=== PATIENT | male | born 1945 | race Caucasian/White ===

== ENCOUNTER 2018-12-05 18:39 | Emergency (ER) | payer MEDICARE, OTHER ==
[~2018-12-05] VITALS: Ht 167.6 cm; Wt 81.6 kg
[2018-12-05 18:40] VITALS: BP 116/58
--- NOTE | 2018-12-05 18:47 | NUR ---
PT TO BED 9 VIA [facility]
--- NOTE | 2018-12-05 19:10 | NUR ---
REPORT RECEIVED FROM VENUS GUERRERO
--- NOTE | 2018-12-05 19:12 | NUR ---
DR. GREENE AT BEDSIDE FOR EVALUATION.
--- NOTE | 2018-12-05 19:13 | NUR ---
PATIENT PRESENTS TO ED WITH bystander called 911 witnessed pt fall ---pt stated 2 dogs scared him and he fell foward onto knees superficial abrasion to left knee no discoloration no swelling---joy tib/fib bandaged; pt states under care of doctor . DENIES N/V/D; SKIN IS PINK/WARM/DRY; AAOX4 WITH EVEN AND STEADY GAIT; LUNGS CLEAR BL; HR EVEN AND REGULAR; PT DENIES ANY FEVER, CP, SOB, OR COUGH AT THIS TIME; PATIENT STATES PAIN OF 6/10 AT THIS TIME; VSS; PATIENT POSITIONED FOR COMFORT; HOB ELEVATED; BEDRAILS UP X2; BED DOWN. ER MD MADE AWARE OF PT STATUS.
[2018-12-05] MEDS ORDERED: ACETAMINOPHEN EXTRA STRENGTH 500 MG TAB PO ONE (19:20)
[2018-12-05 21:28] LABS: BASOPHILS # (AUTO) 0.1 K/uL (0.00-0.22); BASOPHILS % (AUTO) 0.5 % (0.0-2.0); EOSINOPHILS # (AUTO) 0.2 K/uL (0-0.4); EOSINOPHILS % (AUTO) 1.6 % (0.0-4.0); HEMATOCRIT 37.9 % (36-52); HEMOGLOBIN 12.2 g/dL (12.0-18.0); LYMPHOCYTES # (AUTO) 1.1 K/uL (2.0-11.5); MEAN CORPUSCULAR HEMOGLOBIN 27 pg (27-31); MEAN CORPUSCULAR HGB CONC 32 g/dL (33-37); MEAN CORPUSCULAR VOLUME 84.5 fL (80-94); MONOCYTES # (AUTO) 0.6 K/uL (0.8-1.0); MONOCYTES % (AUTO) 6.4 % (1.7-9.3); NEUTROPHILS # (AUTO) 8.1 K/uL (1.8-7.7); NEUTROPHILS % (AUTO) 80.5 % (42.2-75.2); PLATELET COUNT (AUTO) 174 K/uL (140-450); RED BLOOD CELL COUNT(AUTO) 4.49 MIL/uL (4.20-6.10); RED CELL DISTRIBUTION WIDTH 14.7 % (11.6-13.7); WHITE BLOOD COUNT (AUTO) 10.1 K/uL (4.8-10.8)
[2018-12-05 21:38] LABS: APPEARANCE,URINE CLEAR (CLEAR); BILIRUBIN,URINE 1+ (NEGATIVE); BLOOD, URINE NEGATIVE (NEGATIVE); LEUKOCYTE ESTERASE ,URINE NEGATIVE (NEGATIVE); NITRITE, URINE NEGATIVE (NEGATIVE); PH,URINE 5.5 (5.0-9.0); UGLUCOSE NEGATIVE (NEGATIVE)
[2018-12-05 21:41] LABS: ANION GAP 7.8 (8-16); CARBON DIOXIDE 31.8 mmol/L (21-32); CHLORIDE 106 mmol/L (98-107); CREATININE 1.6 mg/dL (0.7-1.3); GLUCOSE 107 mg/dL (74-106); POTASSIUM 4.6 mmol/L (3.5-5.1); SODIUM SERUM 141 mmol/L (136-145); UREA NITROGEN, BLOOD 29 mg/dL (7-18)
[2018-12-05 21:46] LABS: COLOR,URINE AMBER (YELLOW)
[2018-12-05 21:47] LABS: ALBUMIN 2.9 g/dL (3.4-5.0); ASPARTATE AMINOTRANSFERASE 18 U/L (15-37); LIPASE 398 U/L (73-393); TOTAL BILIRUBIN 0.3 mg/dL (0.0-1.0)
[2018-12-05] MEDS ORDERED: NACL 0.9% 1,000 ML IV ONE (22:05)
--- NOTE | 2018-12-05 22:20 | NUR ---
CAREGIVER, "APOLLO", AT BEDSIDE.
[2018-12-05 22:23] LABS: CREATINE KINASE MB 2.4 ng/mL (0-3.6)
[2018-12-05 22:25] VITALS: BP 140/70
--- NOTE | 2018-12-05 22:25 | NUR ---
Patient discharged with v/s stable. Written and verbal after care instructions given and explained. Patient verbalized understanding. Wheel Chair Assisted with caregiver. All questions addressed prior to discharge. Advised to follow up with PMD.
== END 2018-12-05 22:25 | disposition home or self-care (01) ==
LOC: MED 18:39
DX: S80.02XA Contusion of left knee, initial encounter (principal); E11.9 Type 2 diabetes mellitus without complications; F03.90 Unspecified dementia, unspecified severity, without behavioral disturbance, psychotic disturbance, mood disturbance, and anxiety; Z95.0 Presence of cardiac pacemaker; W18.39XA Other fall on same level, initial encounter; Y93.01 Activity, walking, marching and hiking; Y92.414 Local residential or business street as the place of occurrence of the external cause; Y99.8 Other external cause status
CPT/HCPCS: 36415; 71045; 73562; 80053; 81003; 82550; 82553; 83690; 84484; 85025; 93005; 99284; Q0092

== ENCOUNTER 2019-01-24 11:22 | Emergency (ER) | payer MEDICARE, OTHER ==
[~2019-01-24] VITALS: Ht 182.9 cm; Wt 69.9 kg
--- NOTE | 2019-01-24 11:22 | NUR ---
PATIENT BIBA. PATIENT TRANSFERRED TO ER BED 12. RN EVALUATING AT BEDSIDE.
[2019-01-24 11:26] VITALS: BP 115/61
--- NOTE | 2019-01-24 11:30 | NUR ---
PT BIBA W/ C/O GENERALIZED WEAKNESS STARTING TODAY. FSBS 155 UPON ARRIVAL, PT HAS HX OF DEMENTIA, HTN, PACEMAKER TO LEFT CHEST. A & 0 X1, M/S FUNCTION INTACT, PT DENIES PAIN. BILAT LOWER EXTREMETIES ARE WRAPPED IN JACQUELINE BANDAGE FROM THE FOOT UP TO THE KNEE, L HAND HAS REDNESS/SWELLING TO THE 2ND DIGIT. SKIN IS WARM/DRY; LUNGS CLEAR BL; HR EVEN AND REGULAR;VSS; PATIENT POSITIONED FOR COMFORT; HOB ELEVATED; BEDRAILS UP X1; BED DOWN. ER MD MADE AWARE OF PT STATUS.
[2019-01-24] MEDS ORDERED: NACL 0.9% 2,000 ML IV SCH (12:22)
[2019-01-24] MEDS ORDERED: PIPERACILLIN/TAZOBACTAM 3.375 GM in DEXT 5% MINI-BAG PLUS 50 ML IV ONE (12:25)
[2019-01-24] MEDS ORDERED: PIPERACILLIN/TAZOBACTAM 3.375 GM VIAL IV ONE (12:48)
--- NOTE | 2019-01-24 13:10 | NUR ---
URINE COLLECTED AND SENT TO LAB
[2019-01-24 13:16] LABS: BASOPHILS % (AUTO) 0.5 % (0.0-2.0); EOSINOPHILS # (AUTO) 0.1 K/uL (0-0.4); EOSINOPHILS % (AUTO) 0.6 % (0.0-4.0); HEMATOCRIT 39.4 % (36-52); HEMOGLOBIN 12.9 g/dL (12.0-18.0); LYMPHOCYTES # (AUTO) 0.6 K/uL (2.0-11.5); LYMPHOCYTES % (AUTO) 7.2 % (20.5-51.1); MEAN CORPUSCULAR HEMOGLOBIN 28 pg (27-31); MEAN CORPUSCULAR HGB CONC 33 g/dL (33-37); MEAN CORPUSCULAR VOLUME 83.7 fL (80-94); MONOCYTES # (AUTO) 0.5 K/uL (0.8-1.0); MONOCYTES % (AUTO) 5.2 % (1.7-9.3); NEUTROPHILS # (AUTO) 7.7 K/uL (1.8-7.7); NEUTROPHILS % (AUTO) 86.5 % (42.2-75.2); PLATELET COUNT (AUTO) 158 K/uL (140-450); RED CELL DISTRIBUTION WIDTH 15.4 % (11.6-13.7); WHITE BLOOD COUNT (AUTO) 8.9 K/uL (4.8-10.8)
[2019-01-24] MEDS ORDERED: DONE5TAB34 PO (13:18)
[2019-01-24] MEDS ORDERED: AMLO5TAB6 PO (13:18)
[2019-01-24] MEDS ORDERED: TAMS0.4C96 PO (13:18)
[2019-01-24 13:28] LABS: ACETONE, SERUM NEGATIVE (NEGATIVE); PROTHROMBIN TIME 10.4 secs (10.8-13.4)
[2019-01-24 13:40] LABS: MAGNESIUM 1.9 mg/dL (1.8-2.4); URIC ACID 8.1 mg/dL (2.6-7.2)
[2019-01-24 13:42] LABS: ALBUMIN 2.9 g/dL (3.4-5.0); ANION GAP 7.7 (8-16); ASPARTATE AMINOTRANSFERASE 17 U/L (15-37); CARBON DIOXIDE 27.5 mmol/L (21-32); CHLORIDE 106 mmol/L (98-107); CREATININE 1.7 mg/dL (0.7-1.3); GLUCOSE 129 mg/dL (74-106); POTASSIUM 4.2 mmol/L (3.5-5.1); SODIUM SERUM 137 mmol/L (136-145); TOTAL BILIRUBIN 0.7 mg/dL (0.0-1.0); UREA NITROGEN, BLOOD 29 mg/dL (7-18)
--- NOTE | 2019-01-24 14:25 | NUR ---
DISCUSSED POSSIBLE ADMISSION WITH PT, HE STATES HE DID NOT ASK HIS CAREGIVER TO CALL AN AMBULANCE FOR HIM AND HE DOES NOT WANT TO BE ADMITTED. PT STATES HE "THINKS HIS CAREGIVER GAVE HIM SOMETHING TO MAKE HIM TIRED". PT IS A&O X4 AT THIS TIME.
--- NOTE | 2019-01-24 14:30 | NUR ---
INFORMED DR. WAYNE THAT PT DOES NOT WANT TO BE ADMITTED. HE WILL GO SEE THE PT.
[2019-01-24 14:32] LABS: APPEARANCE,URINE CLEAR (CLEAR); BILIRUBIN,URINE NEGATIVE (NEGATIVE); BLOOD, URINE 2+ (NEGATIVE); COLOR,URINE YELLOW (YELLOW); LEUKOCYTE ESTERASE ,URINE NEGATIVE (NEGATIVE); NITRITE, URINE NEGATIVE (NEGATIVE); PH,URINE 5.5 (5.0-9.0); UGLUCOSE NEGATIVE (NEGATIVE)
--- NOTE | 2019-01-24 14:35 | NUR ---
PER DR. WAYNE, PT WILL LEAVE AMA.
[2019-01-24 14:41] LABS: RBC,URINE 11-20 (MOD) /HPF (0-5); WBC,URINE 0-5 /HPF (0-5)
[2019-01-24 16:20] VITALS: BP 109/60
--- NOTE | 2019-01-24 16:20 | NUR ---
pt ama, pt discharged by lionel lua with caregiver at bedside Patient does not wish to proceed with medical care recommended by DR. Marcelo. Patient given information related to possible complications, up to and including , which could occur as a result of leaving hospital at this time. Patient verbalizes understanding of risks involved leaving against medical advice. Patient has signed AMA form.
== END 2019-01-24 16:20 | disposition left against medical advice (07) ==
LOC: MED 11:22
DX: E86.0 Dehydration (principal); E11.22 Type 2 diabetes mellitus with diabetic chronic kidney disease; I12.9 Hypertensive chronic kidney disease with stage 1 through stage 4 chronic kidney disease, or unspecified chronic kidney disease; N18.9 Chronic kidney disease, unspecified; I99.8 Other disorder of circulatory system; Z79.899 Other long term (current) drug therapy; Z91.19 Patient's noncompliance with other medical treatment and regimen
CPT/HCPCS: 36415; 36600; 71045; 80053; 81001; 82009; 82140; 82550; 82803; 83036; 83605; 83735; 83880; 84484; 84550; 85025; 85610; 85730; 87040; 87086; 93005; 96365; 96366; 99284; J2543; J7030; Q0092

== ENCOUNTER 2019-01-26 09:54 | Inpatient (IN) | payer MEDICARE, OTHER ==
--- NOTE | 2017-01-26 20:17 | NUR ---
BS CHECKED. 101 NOTED. NO INSULIN COVERAGE NOTED.
[~2019-01-26] VITALS: Ht 190.5 cm; Wt 73.5 kg
[~2019-01-26 09:54] MED LIST: AMLO5TAB6 PO; DONE5TAB34 PO; TAMS0.4C96 PO
[2019-01-26 09:56] VITALS: BP 155/84
[2019-01-26] MEDS ORDERED: PIPERACILLIN/TAZOBACTAM 3.375 GM in DEXTROSE 5% 50 ML IV ONE (10:15)
[2019-01-26] MEDS ORDERED: VANCOMYCIN 1,000 MG in DEXTROSE 5% 250 ML IV ONE (10:15)
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
--- NOTE | 2019-01-26 10:25 | NUR ---
X-RAY AT BEDSIDE
--- NOTE | 2019-01-26 10:38 | NUR ---
lab at bedside
--- NOTE | 2019-01-26 11:00 | NUR ---
urine collected and sent to lab
[2019-01-26 11:03] LABS: BASOPHILS # (AUTO) 0.1 K/uL (0.00-0.22); BASOPHILS % (AUTO) 0.6 % (0.0-2.0); EOSINOPHILS % (AUTO) 0.4 % (0.0-4.0); HEMATOCRIT 43.8 % (36-52); HEMOGLOBIN 14.4 g/dL (12.0-18.0); LYMPHOCYTES # (AUTO) 1.1 K/uL (2.0-11.5); LYMPHOCYTES % (AUTO) 11.7 % (20.5-51.1); MEAN CORPUSCULAR HEMOGLOBIN 28 pg (27-31); MEAN CORPUSCULAR HGB CONC 33 g/dL (33-37); MEAN CORPUSCULAR VOLUME 84.4 fL (80-94); MONOCYTES # (AUTO) 0.6 K/uL (0.8-1.0); MONOCYTES % (AUTO) 6.4 % (1.7-9.3); NEUTROPHILS # (AUTO) 7.7 K/uL (1.8-7.7); NEUTROPHILS % (AUTO) 80.9 % (42.2-75.2); PLATELET COUNT (AUTO) 161 K/uL (140-450); RED BLOOD CELL COUNT(AUTO) 5.19 MIL/uL (4.20-6.10); RED CELL DISTRIBUTION WIDTH 15.5 % (11.6-13.7); WHITE BLOOD COUNT (AUTO) 9.6 K/uL (4.8-10.8)
[2019-01-26 11:12] LABS: ANION GAP 10.3 (8-16); CARBON DIOXIDE 27.9 mmol/L (21-32); CHLORIDE 109 mmol/L (98-107); CREATININE 1.6 mg/dL (0.7-1.3); GLUCOSE 112 mg/dL (74-106); POTASSIUM 4.2 mmol/L (3.5-5.1); SODIUM SERUM 143 mmol/L (136-145); UREA NITROGEN, BLOOD 25 mg/dL (7-18)
[2019-01-26 11:19] LABS: ALBUMIN 2.8 g/dL (3.4-5.0); ASPARTATE AMINOTRANSFERASE 14 U/L (15-37); PROTHROMBIN TIME 10.4 secs (10.8-13.4); TOTAL BILIRUBIN 0.7 mg/dL (0.0-1.0)
[2019-01-26 11:50] LABS: APPEARANCE,URINE CLEAR (CLEAR); BILIRUBIN,URINE NEGATIVE (NEGATIVE); BLOOD, URINE 2+ (NEGATIVE); COLOR,URINE YELLOW (YELLOW); LEUKOCYTE ESTERASE ,URINE TRACE (NEGATIVE); NITRITE, URINE NEGATIVE (NEGATIVE); PH,URINE 5.5 (5.0-9.0); UGLUCOSE NEGATIVE (NEGATIVE)
[2019-01-26] MEDS ORDERED: VANCOMYCIN 1,000 MG VIAL ONE (11:58)
[2019-01-26 12:34] LABS: RBC,URINE 11-20 (MOD) /HPF (0-5)
--- NOTE | 2019-01-26 14:05 | NUR ---
RECEIVED BEDSIDE REPORT FROM ER NURSE. PATIENT IS AWAKE, ALERT AND ORIENTEDX2. W DEMENTIA. NO SIGNS OF DISTRESS ON RA. SKIN HAS L ANKLE VENOUS ULCER, SEE WOUND ASSESSMENT. DRESSINGS CHANGED, PHOTO TAKEN. PACEMAKER IN PLACE. IV ON R AC 22G SL. CLEAN,DRY AND INTACT. PATIENT IS CONTINENT. FALL RISK PROTOCOL IN PLACE, WEAKNESS. CALL LIGHT WITHIN REACH. BED IN LOW POSITION.
--- NOTE | 2019-01-26 14:05 | NUR ---
Pt admitted to [facility] Rm 111B, report given to CESAR Heredia. Transfer of care at this time.
[2019-01-26 14:30] VITALS: BP 140/76
[2019-01-26] MEDS ORDERED: ACETAMINOPHEN 650 MG/20.3 ML UDC PO PRN (16:05)
[2019-01-26] MEDS ORDERED: cloNIDine 0.1 MG TAB PO PRN (16:05)
[2019-01-26] MEDS ORDERED: VANCOMYCIN PER PHARMACY MC PRN (16:05)
[2019-01-26] MEDS ORDERED: INSULIN LISPRO SLIDING SCALE 100 UNITS/ML VIAL SUBQ PRN (16:25)
[2019-01-26] MEDS ORDERED: DEXTROSE 50% 50 ML SYR IVP PRN (16:25)
--- NOTE | 2019-01-26 16:30 | NUR ---
TALKED TO APOLLO, THE NURSE FOR THE PATIENT. HE SAID HE WILL BRING HOME MEDS LATER AROUND [phone]
[2019-01-26] MEDS: BLOOD GLUCOSE MONITORING 1 DEV DEV FS SCH ×2 (17:11→20:17)
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
--- NOTE | 2019-01-26 19:23 | NUR ---
GAVE BEDSIDE REPORT TO INDIRECT SALES EXEC NURSE. PATIENT ENDORSED IN STABLE CONDITION
--- NOTE | 2019-01-26 19:24 | NUR ---
RECEIVED REPORT FROM DAY SHIFT NURSE AT BEDSIDE. PT IN STABLE CONDITION. NO S/S OF SOB OR ANY DISCOMFORT NOTED. RESPIRATION EVEN AND UNLABORED. IV SITE RAC 22G, SALINE LOCK. PATENT, INTACT, ASYMPTOMATIC. VENOUS ULCER IN L ANKLE , COVERED WITH DRESSING. WOUND DRESSING INTACT AND DRY. NO DRAINAGE NOTED. FALL PRECAUTION IN PLACE. BED IN LOW POSITION. CALL LIGHT WITHIN REACH.
[2019-01-26] MEDS ORDERED: VOL25 PO (19:41)
[2019-01-26] MEDS ORDERED: QUET50TA PO (19:42)
[2019-01-26 20:00] VITALS: BP 129/65
[2019-01-26] MEDS: HYDROcodone/APAP 5/325 MG 1 TAB TAB PO PRN (20:00)
--- NOTE | 2019-01-26 20:00 | NUR ---
PT C/O PAIN ON LEFT HAND, 5/10. ADMINISTERED NORCO DR ORDERED. PT TOLERATED WELL. WILL CONTINUE TO MONITOR.
[2019-01-26] MEDS ORDERED: DONEPEZIL HCL 10 MG PO SCH (21:00)
[2019-01-26] MEDS: QUEtiapine FUMARATE 25 MG TAB PO SCH (21:20)
--- NOTE | 2019-01-26 21:20 | NUR ---
GIVEN SEROQUEL. PT TOLERATED WELL.
--- NOTE | 2019-01-26 23:12 | NUR ---
PT SLEEPING IN BED. NO S/S OF DISCOMFORT NOTE. BREATHING EVENLY AND UNLABORED. WILL CONTINUE TO MONITOR.
[2019-01-27] VITALS: BP 129/65
--- NOTE | 2019-01-27 00:05 | NUR ---
VITAL SIGN TAKEN. PT IN STABLE CONDITION. WILL CONTINUE TO MONITOR.
--- NOTE | 2019-01-27 02:25 | NUR ---
PT SLEEPING COMFORTABLY IN BED. NO S/S OF RESPIRATORY DISTRESS NOTE. BREATHING EVENLY AND UNLABORED. WILL CONTINUE TO MONITOR.
[2019-01-27 04:00] VITALS: BP 155/72
[2019-01-27] MEDS: HYDROcodone/APAP 5/325 MG 1 TAB TAB PO PRN (04:56)
--- NOTE | 2019-01-27 04:56 | NUR ---
PT C/O PAIN ON L HAND, 5/10. GIVEN NORCO ORDERED. PT TOLERATED WELL.
[2019-01-27] MEDS: BLOOD GLUCOSE MONITORING 1 DEV DEV FS SCH ×4 (05:43→21:09)
--- NOTE | 2019-01-27 06:06 | NUR ---
BS CHECKED, 87 mg/dL NOTED.
--- NOTE | 2019-01-27 07:29 | NUR ---
ENDORSED PT TO DAY SHIFT NURSE MARIFER PT IN STABLE CONDITION NO DISTRESS NOTED, CALL LIGHT WITHIN REACH.
--- NOTE | 2019-01-27 07:30 | NUR ---
RECEIVED REPORT FROM BIT GATHERER, PT STABLE, IN BED, IN NO RESPIRATORY DISTRESS, ON RA, BILATERAL LOWER EXTREMITIES BANDAGED, HEEL PROTECTORS IN PLACE, CALL LIGHT WITHIN REACH, WILL CONTINUE TO MONITOR
[2019-01-27 08:00] VITALS: BP 149/53
[2019-01-27 08:17] LABS: BASOPHILS % (AUTO) 0.5 % (0.0-2.0); EOSINOPHILS % (AUTO) 0.5 % (0.0-4.0); HEMATOCRIT 38.4 % (36-52); HEMOGLOBIN 12.7 g/dL (12.0-18.0); LYMPHOCYTES # (AUTO) 0.9 K/uL (2.0-11.5); MEAN CORPUSCULAR HEMOGLOBIN 28 pg (27-31); MEAN CORPUSCULAR HGB CONC 33 g/dL (33-37); MONOCYTES # (AUTO) 0.9 K/uL (0.8-1.0); NEUTROPHILS # (AUTO) 7.4 K/uL (1.8-7.7); PLATELET COUNT (AUTO) 160 K/uL (140-450); RED BLOOD CELL COUNT(AUTO) 4.57 MIL/uL (4.20-6.10); RED CELL DISTRIBUTION WIDTH 15.3 % (11.6-13.7); WHITE BLOOD COUNT (AUTO) 9.3 K/uL (4.8-10.8)
[2019-01-27 08:36] LABS: ANION GAP 15.9 (8-16); CARBON DIOXIDE 22.7 mmol/L (21-32); CHLORIDE 108 mmol/L (98-107); GLUCOSE 97 mg/dL (74-106); POTASSIUM 3.6 mmol/L (3.5-5.1); SODIUM SERUM 143 mmol/L (136-145)
[2019-01-27 08:37] LABS: CREATININE 1.7 mg/dL (0.7-1.3); UREA NITROGEN, BLOOD 24 mg/dL (7-18)
[2019-01-27 08:40] LABS: LYMPHOCYTES % (AUTO) 9.8 % (20.5-51.1); MONOCYTES % (AUTO) 9.5 % (1.7-9.3); NEUTROPHILS % (AUTO) 79.7 % (42.2-75.2)
[2019-01-27] MEDS: amLODIPine 5 MG TAB PO SCH (09:25)
[2019-01-27] MEDS: TAMSULOSIN 0.4 MG CAP PO SCH (09:25)
--- NOTE | 2019-01-27 10:47 | NUR ---
PUT FOLDED PILLOWCASE UNDER PT'S SCROTUM D/T SCROTAL EDEMA, PT STABLE, IN NO RESPIRATORY DISTRESS, RESTING COMFORTABLY, CALL LIGHT WITHIN REACH, WILL CONTINUE TO MONITOR
[2019-01-27] MEDS: NACL 0.9% 1,000 ML IV SCH (11:44)
--- NOTE | 2019-01-27 11:44 | NUR ---
IV SITE TO RIGHT ARM, PATENT AND ASYMPTOMATIC. STARTED IVF NS AT 70ML PER HR. PT TOLERATED WELL.
[2019-01-27 12:00] VITALS: BP 155/69
[2019-01-27] MEDS ORDERED: VANCOMYCIN 1GM/DEXT 5% PREMIX 200 ML IV SCH (12:00)
--- NOTE | 2019-01-27 13:00 | NUR ---
TRANSFERRED PT TO BATHROOM, PT TOLERATED WELL, IN NO RESPIRATORY DISTRESS, WILL WAIT UNTIL PT IS DONE TO TRANSFER BACK.
[2019-01-27] MEDS: CLINDAMYCIN 300 MG in DEXTROSE 5% 50 ML IV SCH ×3 (13:04→23:15)
--- NOTE | 2019-01-27 13:04 | NUR ---
ADMINISTERED CLEOCIN IVPB, RUNNING AT 100ML PER HR.
--- NOTE | 2019-01-27 13:34 | NUR ---
CLEOCIN DONE, 50ML GIVEN. IVF NS CONTINUES AT 70ML/HR
[2019-01-27] MEDS: INDOMETHACIN 25 MG CAP PO SCH ×2 (13:52→16:51)
--- NOTE | 2019-01-27 14:10 | NUR ---
CHANGED PT'S DRESSING BANDAGE. VENOUS ULCER ON LEFT ANKLE PURULENT, PUT NS ON WOUND, WRAPPED IN CLEAN DRESSING AND JACQUELINE BANDAGE, LEGS WARM, +1 PEDAL PULSES, DRY SKIN, WILL CONTINUE TO MONITOR
--- NOTE | 2019-01-27 14:54 | NUR ---
PT CONFUSED, TRIED TO GET OUT OF BED SAYING HE IS LOOKING FOR THE [place] TO HIS APARTMENT. DOES NOT WANT TO EAT BECAUSE HE SAYS HE IS FULL, BED ALARM ON, ON FRENCH WEAVER, CALL LIGHT WITHIN REACH, WILL CONTINUE TO MONITOR AND DO FREQUENT CHECKS.
[2019-01-27 16:00] VITALS: BP 145/68
--- NOTE | 2019-01-27 16:00 | NUR ---
PT RESTING COMFORTABLY IWTH [place] UNDER KNEE AND FOOT OF BED LOWERED, VS STABLE, IN NO RESPIRATORY DISTRESS, CALL LIGHT WITHIN REACH, FREQUENT CHECKS, WILL CONTINUE TO MONITOR
--- NOTE | 2019-01-27 18:00 | NUR ---
PT EATING DINNER, NO S/S OF ACUTE DISTRESS.
--- NOTE | 2019-01-27 18:00 | NUR ---
ADMINISTERED CLEOCIN IVPB, RUNNING AT 100ML PER HR.
--- NOTE | 2019-01-27 18:30 | NUR ---
CLEOCIN DONE, 50ML GIVEN. IVF NS CONTINUES AT 70ML/HR
--- NOTE | 2019-01-27 19:05 | NUR ---
ENDORSED PT TO CHIEF MEDICAL TECHNOLOGIST RNRAFAEL. PT IN STABLE CONDITION.
--- NOTE | 2019-01-27 19:06 | NUR ---
REPORT RECEIVED FROM AM NURSE AT BEDSIDE. PT IN STABLE CONDITION. AAOX1. INTRODUCED SELF TO PT. BOARD UPDATED. NO COMPLAINTS OF PAIN. NO SOB. AFEBRILE. IV SITE R AC 22G RUNNING NS@50ML/HR PATENT AND INTACT. SKIN IS WARM, DRY, AND INTACT WITH NO OPEN WOUNDS. PT HAS GENERALIZED WEAKNESS AND HAS AN UNSTEADY GAIT ON FALL RISK PRECAUTION. BED LOCKED IN LOW POSITION. CALL MASSEY WITHIN REACH. BED ALARM ON. SAFETY PRECAUTIONS IN PLACE. ALL NEEDS MET AT THIS TIME.
--- NOTE | 2019-01-27 21:09 | NUR ---
ARICEPT, COLCHICINE, AND SEROQUEL GIVEN PO. PT SWALLOWED PILLS WELL AND TOLERATED WELL. BS 116. NO INSULIN COVERAGE NEEDED.
[2019-01-27] MEDS: COLCHICINE 0.6 MG TAB PO SCH (21:10)
[2019-01-27] MEDS: DONEPEZIL 10 MG TAB PO SCH (21:10)
[2019-01-27] MEDS: QUEtiapine FUMARATE 25 MG TAB PO SCH (21:10)
--- NOTE | 2019-01-27 23:15 | NUR ---
CLEOCIN HUNG AND RUNNING. PT TOLERATING WELL.
[2019-01-28] VITALS: BP 111/51
--- NOTE | 2019-01-28 01:20 | NUR ---
NS INFUSION 1000ML COMPLETE. NEW NS HUNG.
--- NOTE | 2019-01-28 01:25 | NUR ---
PT SLEEPING COMFORTABLY IN HIGH FOWLERS. NO S/S OF DISTRESS NOTED. CHEST EXPANSION IS VISIBLE. WILL CONTINUE TO MONITOR.
[2019-01-28] MEDS: NACL 0.9% 1,000 ML IV SCH ×2 (01:39→15:41)
--- NOTE | 2019-01-28 03:26 | NUR ---
PT SLEEPING COMFORTABLY SITTING UP IN BED. NO S/S OF DISTRESS NOTED. NO COMPLAINTS OF PAIN. NO SOB. AFEBRILE. WILL CONTINUE TO MONITOR.
[2019-01-28] MEDS: CLINDAMYCIN 300 MG in DEXTROSE 5% 50 ML IV SCH ×5 (05:36→23:01)
[2019-01-28] MEDS: BLOOD GLUCOSE MONITORING 1 DEV DEV FS SCH ×4 (05:38→20:14)
--- NOTE | 2019-01-28 05:38 | NUR ---
BS 135. NO INSULIN COVERAGE NEEDED.
--- NOTE | 2019-01-28 06:00 | NUR ---
IV SITE LEAKING. IV D/C. CANNULA INTACT.
--- NOTE | 2019-01-28 06:05 | NUR ---
IV INSERTED LEFT FA 22G. 1 ATTEMPT.
--- NOTE | 2019-01-28 06:10 | NUR ---
CLEOCIN HUNG AND RUNNING. PT TOLERATING WELL.
--- NOTE | 2019-01-28 07:15 | NUR ---
REPORT GIVEN TO AM NURSE AT BEDSIDE. PT IN STABLE CONDITION.
--- NOTE | 2019-01-28 07:24 | NUR ---
RECEIVED REPORT FROM HAND INSPECTOR AT BEDSIDE. PT IN STABLE CONDITION. AAOX2. INTRODUCED SELF TO PT. BOARD UPDATED. NO COMPLAINTS OF PAIN. NO SOB. AFEBRILE. IV SITE L AC 22G RUNNING NS@50ML/HR PATENT AND INTACT. SKIN IS WARM, DRY, AND INTACT WITH NO OPEN WOUNDS. PT HAS GENERALIZED WEAKNESS AND HAS AN UNSTEADY GAIT ON FALL RISK PRECAUTION. BED LOCKED IN LOW POSITION. CALL MASSEY WITHIN REACH. BED ALARM ON. SAFETY PRECAUTIONS IN PLACE. ALL NEEDS MET AT THIS TIME.
[2019-01-28 08:00] VITALS: BP 134/89
[2019-01-28 08:28] LABS: ANION GAP 14.7 (8-16); CARBON DIOXIDE 24.1 mmol/L (21-32); CHLORIDE 107 mmol/L (98-107); CREATININE 1.8 mg/dL (0.7-1.3); GLUCOSE 107 mg/dL (74-106); POTASSIUM 3.8 mmol/L (3.5-5.1); SODIUM SERUM 142 mmol/L (136-145); UREA NITROGEN, BLOOD 33 mg/dL (7-18)
[2019-01-28] MEDS: TAMSULOSIN 0.4 MG CAP PO SCH (10:46)
[2019-01-28] MEDS: amLODIPine 5 MG TAB PO SCH (10:46)
[2019-01-28] MEDS: COLCHICINE 0.6 MG TAB PO SCH ×2 (10:47→20:07)
[2019-01-28] MEDS: INDOMETHACIN 25 MG CAP PO SCH ×2 (10:47→20:08)
--- NOTE | 2019-01-28 12:04 | NUR ---
PT RESTING IN BED. NO SIGNS OF PAIN OR DISTRESS NOTED. ALL NEEDS CURRENTLY MET. WILL CONTINUE TO ROUND FREQUENTLY. BED IN LOW POSITION, CALL LIGHT WITHIN REACH. BED ALARM ON.
--- NOTE | 2019-01-28 13:31 | NUR ---
PATIENT HAS BEEN SCREENED AND CATEGORIZED HIGH NUTRITION RISK. PATIENT WILL BE SEEN WITHIN 1-2 DAYS OF ADMISSION. 01/27/18NIMA CASAS MBA, RD
[2019-01-28 16:00] VITALS: BP 167/76
--- NOTE | 2019-01-28 16:25 | NUR ---
01/28/19 RD INITIAL ASSESSMENT COMPLETED PLEASE REFER TO NUTRITION ASSESSMENT UNDER CARE ACTIVITY FOR ESTIMATED NUTRITIONAL NEEDS. RD RECOMMENDATIONS: 1. RECOMMEND CONTINUE CARDIAC 60G CCHO DIET 2. F/U 3-5 DAYS; MODERATE RISK NIMA CASAS MBA, RD
--- NOTE | 2019-01-28 19:24 | NUR ---
ENDORSED PT TO REGISTER CLERK FOR CONTINUITY OF CARE. PT IN STABLE CONDITION AT THIS TIME.
--- NOTE | 2019-01-28 19:25 | NUR ---
REPORT RECEIVED FROM AM NURSE AT BEDSIDE. PT V/S IN STABLE CONDITION. AAOX1. PT IS VERY CONFUSED. INTRODUCED SELF TO PT. BOARD UPDATED. NO COMPLAINTS OF PAIN. NO SOB. AFEBRILE. IV SITE L FA 22G RUNNING NS@70ML/HR PATENT AND INTACT. SKIN WARM, DRY, AND NOT INTACT DUE TO VENOUS STASIS ULCERS ON THE LEFT ANKLE. PT HAS HEEL PROTECTORS. BED ALARM ON DUE TO FALL RISK. BED LOCKED IN LOW POSITION CALL MASSEY WITHIN REACH. SAFETY PRECAUTIONS IN PLACE. ALL NEEDS MET AT THIS TIME.
[2019-01-28] MEDS: DONEPEZIL 10 MG TAB PO SCH (20:07)
--- NOTE | 2019-01-28 20:07 | NUR ---
ARICEPT, COLCHICINE, INDOCIN, AND SEROQUEL GIVEN PO. BS 115. NO INSULIN COVERAGE NEEDED.
[2019-01-28] MEDS: QUEtiapine FUMARATE 25 MG TAB PO SCH (20:08)
--- NOTE | 2019-01-28 21:00 | NUR ---
PT IS VERY CONFUSED. MD NOTIFIED. AWAITING CALL BACK.
[2019-01-28] MEDS ORDERED: LORazepam 2 MG/ML VIAL IVP PRN (21:05)
--- NOTE | 2019-01-28 21:05 | NUR ---
CALL BACK. ORDERED ATIVAN 1MG IVP Q4H PRN FOR ANXIETY. RADHA.
--- NOTE | 2019-01-28 21:29 | NUR ---
ATIVAN GIVEN IVP FOR ANXIETY. PT TOLERATED WELL.
--- NOTE | 2019-01-28 23:01 | NUR ---
CLEOCIN HUNG AND RUNNING. PT TOLERATING WELL.
--- NOTE | 2019-01-28 23:45 | NUR ---
PT EXTREMELY AGITATED AND CONFUSED. UPWRAPPING KERLIX THAT WAS WRAPPED AROUND THE IV AND PULLING ON THE IV LINE ITSELF.
--- NOTE | 2019-01-28 23:55 | NUR ---
PT PULLED OUT IV LINE AND IS HOLDING ON TO THE LINE VERY TIGHTLY. ATTEMPTING TO TAKE THE IV LINE AWAY FROM HIM AND HE WILL NOT LET GO. PT IS VERY COMBATIVE AND SWUNG AT ME. FINALLY WAS ABLE TO TAKE THE IV LINE AWAY FROM PATIENT.
[2019-01-29] VITALS: BP 121/53
--- NOTE | 2019-01-29 01:00 | NUR ---
PT FINALLY FELL ASLEEP. NO S/S OF DISTRESS NOTED.
--- NOTE | 2019-01-29 03:20 | NUR ---
PT SLEEPING COMFORTABLY. NO S/S OF DISTRESS NOTED.
--- NOTE | 2019-01-29 04:45 | NUR ---
PT HAD A BM. USED BESIDE COMMODE.
--- NOTE | 2019-01-29 05:01 | NUR ---
PT SLEEPING COMFORTABLY IN BED. NO S/S OF DISTRESS NOTED. BREATHING EVEN, UNLABORED, AND WNL. WILL CONTINUE TO MONITOR.
--- NOTE | 2019-01-29 05:45 | NUR ---
BS 94. NO INSULIN COVERAGE NEEDED.
[2019-01-29] MEDS: NACL 0.9% 1,000 ML IV SCH (05:59)
--- NOTE | 2019-01-29 06:00 | NUR ---
ATTEMPTED MULTIPLE IV'S. UNABLE TO GET IV ACCESS.
[2019-01-29] MEDS: BLOOD GLUCOSE MONITORING 1 DEV DEV FS SCH ×2 (06:58→12:24)
[2019-01-29 07:11] LABS: BASOPHILS % (AUTO) 0.6 % (0.0-2.0); EOSINOPHILS # (AUTO) 0.4 K/uL (0-0.4); EOSINOPHILS % (AUTO) 4.5 % (0.0-4.0); HEMATOCRIT 39.8 % (36-52); HEMOGLOBIN 12.9 g/dL (12.0-18.0); LYMPHOCYTES # (AUTO) 0.9 K/uL (2.0-11.5); LYMPHOCYTES % (AUTO) 11.9 % (20.5-51.1); MEAN CORPUSCULAR HEMOGLOBIN 27 pg (27-31); MEAN CORPUSCULAR HGB CONC 32 g/dL (33-37); MEAN CORPUSCULAR VOLUME 84.5 fL (80-94); MONOCYTES # (AUTO) 0.7 K/uL (0.8-1.0); NEUTROPHILS # (AUTO) 5.8 K/uL (1.8-7.7); PLATELET COUNT (AUTO) 159 K/uL (140-450); RED BLOOD CELL COUNT(AUTO) 4.71 MIL/uL (4.20-6.10); RED CELL DISTRIBUTION WIDTH 15.5 % (11.6-13.7); WHITE BLOOD COUNT (AUTO) 7.8 K/uL (4.8-10.8)
[2019-01-29 07:12] LABS: ANION GAP 12.3 (8-16); CARBON DIOXIDE 24.4 mmol/L (21-32); CHLORIDE 110 mmol/L (98-107); CREATININE 1.4 mg/dL (0.7-1.3); GLUCOSE 111 mg/dL (74-106); POTASSIUM 3.7 mmol/L (3.5-5.1); SODIUM SERUM 143 mmol/L (136-145); UREA NITROGEN, BLOOD 30 mg/dL (7-18)
--- NOTE | 2019-01-29 07:25 | NUR ---
REPORT GIVEN TO AM NURSE AT BEDSIDE. PT IN STABLE CONDITION. ENDORSED TO AM SHIFT TO START IV ACCESS AND GIVE CLEOCIN.
--- NOTE | 2019-01-29 07:26 | NUR ---
RECEIVEED REPORT FROM PM NURSE . PT SLEEPING AT THIS TIME. PER PM NURSE, PT HAS BEEN COMBATIVE AND PULLING HIS IV ACCESS AL THE TIME, SO IV ACCESS. ABX INFUSION PENDING. PT HX DEMENTIA, HIGH FALL RISK. HAS LFT HAND CELLULITIS. CHECKED VS, PT SLEEPING. STATES IS SLEEPY, REFUSED HIS BREAKFAST AT THIS TIME. BED ALARM ON. CALL LIGHT WITHIN PT REACH. WILL CONTINUE TO MONITOR PT.
[2019-01-29 08:00] VITALS: BP 148/69
[2019-01-29] MEDS: INDOMETHACIN 25 MG CAP PO SCH (09:08)
[2019-01-29] MEDS: TAMSULOSIN 0.4 MG CAP PO SCH (09:09)
[2019-01-29] MEDS: COLCHICINE 0.6 MG TAB PO SCH (09:09)
[2019-01-29] MEDS: amLODIPine 5 MG TAB PO SCH (09:09)
[2019-01-29] MEDS: CLINDAMYCIN 300 MG in DEXTROSE 5% 50 ML IV SCH ×2 (10:02→12:00)
[2019-01-29] MEDS ORDERED: COLC0.6C PO (10:36)
[2019-01-29] MEDS ORDERED: CLIN300C2 PO (10:36)
--- NOTE | 2019-01-29 11:09 | NUR ---
WOUND CARE EVALUATION NOTE: REASON FOR EVALUATION: LOW ARNAV SCALE AND BILATERAL LE WOUNDS SKIN ASSESSMENT DONE WITH THIS 73 Y/O MALE PT ADMITTED TO [facility] WITH INITIAL DX LEFT ANKLE WOUNDS. PAST MEDICAL HX INCLUDES HTN, BPH AND ALZHEIMER DEMENTIA. ALL ABOVE INFORMATION OBTAINED FROM ADMISSION H&P. PT IS AWAKE. SKIN IS WARM AND DRY, BLE NO HAIR GROWTH, NO EDEMA. DORSAL PEDAL PULSES PRESENT AND NORMAL. FUNGAL LIKED TOE NAILS WITH HAMMER TOES, INCONTINENT OF BOWEL AND BLADDER. DR. BAIG AT BED SIDE, PLAN OF CARE DISCUSSED AND AGREEABLE WITH RECOMMENDATIONS. PLAN OF CARE DISCUSSED WITH PRIMARY RN. INTEGUMENTARY: -LEFT INDEX FINGER TIP UN-KNOW ETIOLOGY WITH NON-BLANCHABLE WHITISH DISCOLORATION SKIN INTACT -RIGHT FIRST METATARSAL BASE SOFT BROWN SCAB 1X1CM -VENOUS STASIS ULCER TO RIGHT LOWER LEG DORSAL FOOT PARTIAL THICKNESS SKIN LOSS 6X1X0.1, WOUND BED IS PINK, CLEAN AND MOIST, NO ODOR -VENOUS STASIS ULCER TO RIGHT LATERAL SCAB 1X1, BROWN, LNADY-WOUND SKIN SCALY -VENOUS STASIS ULCER TO LEFT LOWER LEG MULTIPLE PARTIAL THICKNESS SKIN LOSS: LEFT LATERAL MALLEOLUS 1.5X4X0.2, WOUND BED IS PINK, CLEAN AND MOIST, NO ODOR. LEFT MEDIAL MALLEOLUS 2X3X0.2, WOUND BED IS PINK, CLEAN AND MOIST, NO ODOR. AND LEFT LOWER ALSTON 2X8CM DEPTH IS SUPERFICIAL, WOUND BED IS PINK, CLEAN AND DRY, LANDY-WOUND SKIN SCALY -BILATERAL HEELS THICKEN CALLUS -SACRALCOCCYX BLANCHABLE REDNESS RECOMMENDATIONS: -HOME HEALTH NURSE TO FOLLOW UP WOUND CARE -CLEANSE BLE VENOUS STASIS ULCER WITH NS, PAT DRY, WRAP UNNA SOLARES FROM TOES TO BELOW KNEE, COVER WITH KERLIX ROLLS AND JACQUELINE BANDAGE WEEKLY ON TUESDAY AND KEEP AREA DRY AND CLEAN -APPLY FOAM DRESSING TO SACROCOCCYX Q7 DAYS AND PRN IF SOILING PREVENTION -APPLY HEEL PROTECTORS TO BOTH HEELS AT ALL TIMES -OFFLOAD BILATERAL HEELS BY PLACING PILLOWS UNDER CALVES UNLESS OTHERWISE CONTRAINDICATED -PRESSURE REDISTRIBUTION SURFACE THERAPY -TURN AND REPOSITION Q2H, OFFLOAD SACRALCOCCYX AND BUTTOCKS BY TURNING RIGHT AND LEFT -CONTINUE TO FOLLOW RD RECOMMENDATIONS ALL ABOVE RECOMMENDATIONS DISCUSSED WITH PRIMARY RN. PLEASE CONTACT WOUND CARE NURSE FOR ANY QUESTION AND CHANGE OF WOUND CONDITION.
[2019-01-29] MEDS ORDERED: FOAM DRESSING TP PRN (12:25)
--- NOTE | 2019-01-29 12:30 | NUR ---
ASSESSED PT LFT HAND. SLIGHTLY SWELLING. DENIES ANY PAIN AT THIS TIME. PT TO MOVE AROUND HIS HAND. NO SIGN OF DISTRESS THIS TIME. PT SEEN BY MD. POSSIBLE DISCHARGE.
[2019-01-29] MEDS ORDERED: FOAM DRESSING TP SCH (13:00)
--- NOTE | 2019-01-29 13:03 | NUR ---
PT NOT ADMINISTERED 1200 ABX PT MORNING 0900 CLOCK ABX WAS PENDING . GAVE IT AROUNG 1000 THIS MORNING AFTER HAVING INSERTED IV. TALKED TO THE PHARMACY, OKAY TO HOLD THE ABX FOR 1200 O'CLOCK AT THIS TIME IT IS TOO CLOSE FOR THE NEXT DOSE.
--- NOTE | 2019-01-29 13:44 | NUR ---
Geriatric Social Work Professor Note: I received a call from Slime Plant Operator Helper Kaitlin from [facility] ext [phone], their medical practice assistant Jose Birmingham would like to speak with attending MD regarding patient's hospitalization, I informed patient's nurse RN Sital of this. Per RN Sital, he will contact attending MD and relay message to MD.
--- NOTE | 2019-01-29 13:50 | NUR ---
PT DISCHARGED TO HOME. PT WENT HOME WITH HIS CHANNEL SPECIALIST MR. BUSTILLOS. PT WILL FOLLOW UP WITH WOUND CARE CLINIC , SS MADE APPOINTMENT WITH DR. DEJA CASPER AT [facility]. PER CAREGIVER, PT FAMILY NOT ACTIVELY INVOLVED IN PTS CARE. LIVES AT [facility] APARTMENT. STATES CAN ZIPPER SETTER LOCKSTITCH BEFORE [address] WELL. FURNITURE DESIGNER AWARE. CHARGE NURSE AWARE. PT PROVIDED WITH DISCHARGE PRESCRIPTION AND ALL THE DISCHARGE PAPER WORK. ALL PATIENTS BELONGING SENT WITH PTS CAREGIVER APOLLO.
--- NOTE | 2019-01-29 14:28 | NUR ---
CALLED DR. ZAMORANO OFFICE, LEFT MESSAGE REGARDING [facility] DIRECTOR WANTED TO CALL HIM. PHONE NUMBER PROVIDED [phone] TO MD IMPROVEMENT MANAGER.
--- NOTE | 2019-01-29 14:33 | NUR ---
SPOKE WITH NOREEN FROM [facility]. SHE SAID THIS PATIENT WAS GOING TO [facility] UNDER DR. DEJA CASPER. HE ALREADY HAVE AUTH FOR 10 UNITS, AUTH NUMBER [id number]. I CALLED [facility] AND SPOKE WITH DEVENDRA. SHE SAID THAT THE PATIENT HAS AN APPOINTMENT TOMORROW Tuesday01/30/19 AT 10A.M. AND THE POWER PROJECT MANAGER , APOLLO, WILL BRING HIM. SHE ASKED ME TO FAX THE INFORMATION TO HER AT [phone], WHICH I DID. INCLUDING THE WOUND ASSESSMENT. PHONE FOR [facility], [phone] FAXED TO NOREEN AT [facility],[phone], THE ORDER , PROGRESS NOTES AND WOUND ASSESSMENT AND ORDER TO HER.
--- NOTE | 2019-01-29 15:06 | NUR ---
WENT TO THE PATIENT'S ROOM AND SPOKE WITH HIM AND HIS GROUNDS CLEANER. THE PATIENT LIVES ALONE AND THE GROUNDS CLEANER COMES EVERYDAY IN THE MORNING TO GIVE HIS MEDS, HELP WITH SHOWER,ETC. PATIENT HAS MEALS ON WHEELS. PATIENT ALSO HAS A WALKER. PLANS TO GO HOME UPON DISCHARGE. PATIENT HAS BEEN GOING TO [facility] AND WILL FOLLOW UP TOMORROW.
== END 2019-01-29 13:50 | disposition home or self-care (01) | DRG 602 ==
LOC: MED 09:54 → MMU 13:10 → UNDOADMIN 13:10 → MMU 13:14 → UNDOADMOB 13:14 → MTU 13:46 → MMU 13:46 → MTU 18:00 → MMU 01-27 11:08 → MTU 01-27 11:08 → OBSVTOIN 01-27 11:08 → INTOOBSV 01-29 10:42
PROVIDERS: ADMIT Internal Medicine Pulmonary Disease; ATTEND Internal Medicine Pulmonary Disease
DX: L03.114 Cellulitis of left upper limb (principal); N17.0 Acute kidney failure with tubular necrosis; E44.1 Mild protein-calorie malnutrition; M10.9 Gout, unspecified; F02.80 Dementia in other diseases classified elsewhere, unspecified severity, without behavioral disturbance, psychotic disturbance, mood disturbance, and anxiety; G30.9 Alzheimer's disease, unspecified; I10 Essential (primary) hypertension; E87.8 Other disorders of electrolyte and fluid balance, not elsewhere classified; R73.9 Hyperglycemia, unspecified; N40.0 Benign prostatic hyperplasia without lower urinary tract symptoms; Z95.0 Presence of cardiac pacemaker; Z79.899 Other long term (current) drug therapy
CPT/HCPCS: 36415; 71045; 73130; 80048; 80053; 81001; 82948; 83605; 84550; 85025; 85610; 85730; 87040; 87070; 87081; 87086; 87186; 93005; 93971; 96365; 96367; 99285; J1815; J2060; J2543; J3370; J3490; J7030; J7060; Q0092

== ENCOUNTER 2019-05-15 12:38 | Inpatient (IN) | payer MEDICARE, OTHER ==
[~2019-05-15] VITALS: Ht 177.8 cm; Wt 66.7 kg
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
[~2019-05-15 12:38] MED LIST changes: +CLIN300C2 PO; +COLC0.6C PO; +QUET50TA PO; +VOL25 PO
--- NOTE | 2019-05-15 12:38 | NUR ---
Patient BIBA ACLS, transferred to bed 3. RN evaluating patient at bedside.
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
[2019-05-15 12:50] VITALS: BP 100/68
--- NOTE | 2019-05-15 12:59 | NUR ---
Dr. Gusman evaluating patient at bedside.
[2019-05-15] MEDS ORDERED: NACL 0.9% 1,000 ML IV SCH (13:06)
--- NOTE | 2019-05-15 13:10 | NUR ---
APOLLO GRE INSTRUCTOR , TEL: [phone].
--- NOTE | 2019-05-15 13:21 | NUR ---
X RAY AT BEDSIDE
--- NOTE | 2019-05-15 13:55 | NUR ---
PT TAKEN TO CT
[2019-05-15 13:56] LABS: BASOPHILS # (AUTO) 0.1 K/uL (0.00-0.22); BASOPHILS % (AUTO) 0.5 % (0.0-2.0); HEMATOCRIT 39.9 % (36-52); HEMOGLOBIN 12.8 g/dL (12.0-18.0); LYMPHOCYTES # (AUTO) 0.3 K/uL (2.0-11.5); LYMPHOCYTES % (AUTO) 2.5 % (20.5-51.1); MEAN CORPUSCULAR HEMOGLOBIN 27 pg (27-31); MEAN CORPUSCULAR HGB CONC 32 g/dL (33-37); MEAN CORPUSCULAR VOLUME 84.9 fL (80-94); MONOCYTES # (AUTO) 0.9 K/uL (0.8-1.0); MONOCYTES % (AUTO) 7.5 % (1.7-9.3); NEUTROPHILS # (AUTO) 10.6 K/uL (1.8-7.7); NEUTROPHILS % (AUTO) 89.5 % (42.2-75.2); PLATELET COUNT (AUTO) 215 K/uL (140-450); RED CELL DISTRIBUTION WIDTH 15.2 % (11.6-13.7)
[2019-05-15 14:17] LABS: WHITE BLOOD COUNT (AUTO) 11.9 K/uL (4.8-10.8)
[2019-05-15 14:21] LABS: APPEARANCE,URINE CLEAR (CLEAR); BILIRUBIN,URINE 2+ (NEGATIVE); BLOOD, URINE 3+ (NEGATIVE); COLOR,URINE DARK YELLOW (YELLOW); LEUKOCYTE ESTERASE ,URINE NEGATIVE (NEGATIVE); NITRITE, URINE NEGATIVE (NEGATIVE); PH,URINE 5.5 (5.0-9.0); UGLUCOSE NEGATIVE (NEGATIVE)
[2019-05-15 14:40] LABS: ALBUMIN 2.4 g/dL (3.4-5.0); ASPARTATE AMINOTRANSFERASE 157 U/L (15-37); CARBON DIOXIDE 23.5 mmol/L (21-32); CHLORIDE 110 mmol/L (98-107); CREATININE 2.4 mg/dL (0.7-1.3); GLUCOSE 152 mg/dL (74-106); POTASSIUM 3.5 mmol/L (3.5-5.1); SODIUM SERUM 147 mmol/L (136-145); TOTAL BILIRUBIN 0.9 mg/dL (0.0-1.0); UREA NITROGEN, BLOOD 37 mg/dL (7-18)
--- NOTE | 2019-05-15 14:40 | NUR ---
US AT BEDSIDE
[2019-05-15 14:44] LABS: COARSE GRANULAR CASTS,URINE 0-10 /LPF (None Seen); HYALINE CASTS, URINE 0-10 /LPF (None Seen); URINE AMORPHOUS URATE 1+ /HPF (None Seen)
[2019-05-15 14:45] LABS: RBC,URINE 11-20 (MOD) /HPF (0-5)
[2019-05-15 14:52] LABS: PROTHROMBIN TIME 11.8 secs (10.8-13.4)
[2019-05-15] MEDS ORDERED: NACL 0.9% 1,000 ML IV ONE (15:20)
[2019-05-15] MEDS ORDERED: cefTRIAXone 1,000 MG VIAL ONE (15:34)
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
--- NOTE | 2019-05-15 16:56 | NUR ---
Patient will be admitted to care of DR BAIG. Admited to TELE. Will go to room 122B. Belongings list completed. Report to ALVERTO GUERRERO.
[2019-05-15] MEDS ORDERED: NACL 0.45% 1,000 ML IV SCH (17:00)
[2019-05-15 17:03] VITALS: BP 103/65
[2019-05-15] MEDS ORDERED: SODIUM PHOSPHATE 118 ML ENEM RC PRN (17:05)
[2019-05-15] MEDS ORDERED: cloNIDine 0.1 MG TAB PO PRN (17:05)
[2019-05-15] MEDS ORDERED: ACETAMINOPHEN 650 MG SUPP RC PRN (17:05)
[2019-05-15] MEDS ORDERED: POTASSIUM CHLORIDE 40 MEQ, LIDOCAINE 1% 25 MG in NACL 0.9% 250 ML IV PRN (17:05)
[2019-05-15] MEDS ORDERED: DOCUSATE SODIUM 250 MG GELCAP PO PRN (17:05)
[2019-05-15] MEDS ORDERED: diphenhydrAMINE 50 MG/ML VIAL IVP PRN (17:05)
[2019-05-15] MEDS ORDERED: BISACODYL 10 MG SUPP RC PRN (17:05)
[2019-05-15] MEDS ORDERED: POTASSIUM CHLORIDE 10 MEQ TABER PO PRN (17:05)
[2019-05-15] MEDS ORDERED: MAG SULF 2000 MG/WATER PREMIX 50 ML IV PRN (17:05)
[2019-05-15] MEDS ORDERED: ALUMINUM HYD/MAG/SIMETHICONE 30 ML UDC PO PRN (17:05)
[2019-05-15] MEDS ORDERED: LORazepam 2 MG/ML VIAL IVP PRN (17:05)
[2019-05-15] MEDS ORDERED: ACETAMINOPHEN 325 MG TAB PO PRN (17:05)
[2019-05-15] MEDS ORDERED: MORPHINE SULFATE 2 MG/ML SYR IVP PRN (17:05)
[2019-05-15] MEDS ORDERED: ZOLPIDEM 5 MG TAB PO PRN (17:05)
[2019-05-15] MEDS ORDERED: IPRATROPIUM 0.02% 0.5 MG/2.5 ML NEBU INH PRN (17:05)
[2019-05-15] MEDS ORDERED: HYDROcodone/APAP 5/325 MG 1 TAB TAB PO PRN ×2 (17:05)
[2019-05-15] MEDS ORDERED: guaiFENesin DM 200/20 MG-10 ML 10 ML UDC PO PRN (17:05)
[2019-05-15] MEDS ORDERED: ALBUTEROL 0.083% 2.5 MG/3 ML NEBU INH PRN (17:05)
[2019-05-15] MEDS ORDERED: ONDANSETRON 4 MG/2 ML VIAL IVP PRN (17:05)
[2019-05-15] MEDS ORDERED: MAGNESIUM OXIDE 400 MG TAB PO PRN (17:05)
--- NOTE | 2019-05-15 19:15 | NUR ---
RECEIVED REPORT FROM AM NURSE. PT AT BED RESTING, AWAKE, ALERT AND ORIENTED X4, PERRLA 3MM, FOLLOWS COMMANDS, HEART RATE REGULAR, SR ON MONITOR, WITH PACS, CAP REFILL <3S, LUNG SOUNDS CLEAR ON BILATERAL UPPER LOBES, DIMINISHED AT BASES BILATERALLY, ABDOMEN, SOFT, ROUND, NONDISTENDED, NONTENDER, BLADDER, SOFT, ROUND, NONDISTENDED, NONTENDER, PT HAS GENERALIZED WEAKNESS. SKIN NON INTACT, SACRAL AREA DISCOLORATION, BILATERAL LEG DRESSING WRAPS. LEFT FA 18 GAUGE RUNNING NS AT 10 ML/HR. Addendum: 05/15/19 at 2208 by Joe Shelton RN LEFT TESTICLE IS SWOLLEN, TENDER TO TOUCH Addendum: 05/15/19 at 2221 by Joe Shelton RN HOB 30 DEGREES, BED ALARM IN PLACE, SIDERAILS UP X2, BED AT LOWEST POSITION.
[2019-05-15] MEDS: NACL 0.45% 1,000 ML IV SCH (19:30)
[2019-05-15 20:00] VITALS: BP 108/57
[2019-05-15] MEDS: DONEPEZIL 10 MG TAB PO SCH (21:00)
[2019-05-15] MEDS ORDERED: DONEPEZIL HCL 10 MG PO SCH (21:00)
--- NOTE | 2019-05-15 22:15 | NUR ---
MEDICATIONS GIVEN. PT TOLERATED PROCEDURE WELL.
[2019-05-16] VITALS: BP 140/70
--- NOTE | 2019-05-16 | NUR ---
PT AT BED RESTING EYES CLOSED, BREATHING REGULARLY. HOB 30 DEGREES, SIDERAILS UP X2, BED AT LOWEST POSITION.
--- NOTE | 2019-05-16 03:00 | NUR ---
PT PULLED IV. INSERTED 22 GAUGE IV ON LEFT FA. PT TOLERATED PROCEDURE WELL
[2019-05-16 04:00] VITALS: BP 138/73
[2019-05-16] MEDS: NACL 0.45% 1,000 ML IV SCH ×2 (05:29→17:00)
[2019-05-16 06:18] LABS: HEMATOCRIT 40.9 % (36-52); HEMOGLOBIN 13.3 g/dL (12.0-18.0); MEAN CORPUSCULAR HEMOGLOBIN 28 pg (27-31); MEAN CORPUSCULAR HGB CONC 33 g/dL (33-37); MEAN CORPUSCULAR VOLUME 84.9 fL (80-94); PLATELET COUNT (AUTO) 197 K/uL (140-450); RED BLOOD CELL COUNT(AUTO) 4.81 MIL/uL (4.20-6.10); RED CELL DISTRIBUTION WIDTH 15.2 % (11.6-13.7); WHITE BLOOD COUNT (AUTO) 10.6 K/uL (4.8-10.8)
[2019-05-16 06:29] LABS: ANION GAP 15.5 (8-16); CARBON DIOXIDE 23.9 mmol/L (21-32); CHLORIDE 113 mmol/L (98-107); CREATININE 1.4 mg/dL (0.7-1.3); GLUCOSE 117 mg/dL (74-106); POTASSIUM 3.4 mmol/L (3.5-5.1); SODIUM SERUM 149 mmol/L (136-145); UREA NITROGEN, BLOOD 34 mg/dL (7-18)
--- NOTE | 2019-05-16 06:51 | NUR ---
PT AT BED RESTING EYES CLOSED, BREATHING REGULARLY. HOB 30 DEGREES, SIDERAILS UP X2, BED AT LOWEST POSITION.
--- NOTE | 2019-05-16 07:15 | NUR ---
RECEIVED PT REPORT FROM ASSISTANT ACTIVITIES DIRECTOR RN JULIANA. PT RESTING IN BED, AAOX3, HX OF DEMENTIA. PERRL 3MM, FOLLOWS COMMANDS, DELAYED VERBAL RESPONSE, CONFUSED SOMETIMES. SR ON MONITOR. NO S/S OF RESPIRATORY DISTRESS. SCROTAL ENEMA NOTED. CRADLED WITH PILLOW CASE. CAP REFILL <3S, LUNG SOUNDS CLEAR. ABDOMEN, SOFT, NONTENDER, NONDISTENDED. BILATERAL LEG DRESSING WRAPS, HX OF VENOUS STASIS ULCER BLE. IV TO THE LEFT FA, 22G, RUNNING 1/2NS AT 100 ML/HR, PATENT, ASYMPTOMATIC. CALL LIGHT WITHIN REACH, FALL PRECAUTIONS IN PLACE. BED LOCKED IN LOWEST POSITION. CONTINUE TO MONITOR.
[2019-05-16 08:00] VITALS: BP 146/83
[2019-05-16] MEDS: TAMSULOSIN 0.4 MG CAP PO SCH (08:24)
[2019-05-16] MEDS: amLODIPine 5 MG TAB PO SCH (08:25)
--- NOTE | 2019-05-16 08:35 | NUR ---
PATIENT HAS BEEN SCREENED AND CATEGORIZED HIGH NUTRITION RISK. PATIENT WILL BE SEEN WITHIN 1-2 DAYS OF ADMISSION. 05/16/19-05/17/[address]
[2019-05-16 08:41] LABS: LYMPHOCYTES % (MANUAL) 11 % (20-46)
[2019-05-16] MEDS ORDERED: NON-FORMULARY ITEM (Colchicine 0.6 MG) PO SCH (09:00)
--- NOTE | 2019-05-16 10:30 | NUR ---
DR BAIG SEEN THE PT. DR ORDERED TO ENSURE PT DRINK MORE FLUID 2L/DAY
--- NOTE | 2019-05-16 11:05 | NUR ---
PT HAD BM IN BED, LARGE YELLOW STOOL. PT WAS CLEANED BY MAINTENANCE GROUNDSKEEPER. LINENS WERE CHANGED.
[2019-05-16 12:00] VITALS: BP 113/68
--- NOTE | 2019-05-16 15:45 | NUR ---
WOUND CARE EVALUATION NOTE: REASON FOR EVALUATION: LOW ARNAV SCALE AND BILATERAL LE WOUNDS SKIN ASSESSMENT DONE WITH THIS 74Y/O MALE PT ADMITTED TO [facility] WITH INITIAL DX DEHYDRATION. PAST MEDICAL HX INCLUDES HTN, BPH AND ALZHEIMER DEMENTIA CHRONIC BLE WOUNDS. ALL ABOVE INFORMATION OBTAINED FROM ADMISSION H&P. PT IS AWAKE. SKIN IS WARM AND DRY, BLE NO HAIR GROWTH, MULTIPLE WOUNDS. FUNGAL LIKED TOE NAILS WITH HAMMER TOES, INCONTINENT OF BOWEL AND BLADDER. PLAN OF CARE DISCUSSED AND AGREEABLE WITH RECOMMENDATIONS. PLAN OF CARE DISCUSSED WITH PRIMARY RN. INTEGUMENTARY: -VENOUS STASIS ULCER TO RIGHT LOWER LEG TO LANDY-ANKLE AND DORSAL FOOT PARTIAL THICKNESS SKIN LOSS 11X4, IRREGULAR SHAPE WITH WOUND BED 100% BROWN/YELLOW SLOUGH, DEPTH IS UTD, NO ODOR, LANDY �WOUND SKIN BROWN, INTACT,PAIN 0/10 -VENOUS STASIS ULCER TO LEFT LOWER LEG TO LANDY-ANKLE AND DORSAL FOOT PARTIAL THICKNESS SKIN LOSS 2X4X0.1CM, IRREGULAR SHAPE WITH WOUND BED 100% GRANULATING TISSUE, , NO ODOR, LANDY �WOUND SKIN LIGHT BROWN, INTACT, PAIN 0/10 -BILATERAL HEELS SOFT CALLUS -SACRALCOCCYX PRESSURE ULCER STAGE 3, 2X1X0.2CM WITH LANDY-WOUND DENUDED, SURROUNDING PURPLE COLOR EXTENDED TO R/L INNER BUTTOCKS INDICATED FURTHER DAMAGE. -LEFT BUTTOCK PRESSURE ULCER UN-STAGEABLE, STABLE BROWN ESCHAR 5X3CM UTD DEPTH -RIGHT BUTTOCK PRESSURE ULCER UN-STAGEABLE, HALF RING SHAPE STABLE BROWN ESCHAR 14X2CM UTD DEPTH -SCROTAL AREA EDEMA, WITH SKIN INTACT RECOMMENDATIONS: -PENDING PODIATRY CONSULT -CLEANSE BLE VENOUS STASIS ULCER WITH NS, PAT DRY, COVER WITH XEROFORM DRESSING COVER WITH KERLIX ROLLS AND JACQUELINE BANDAGE Q M-W F AND PRN IF SOILING AND KEEP AREA DRY AND CLEAN -CLEANSE SACRAL COCCYX WITH NS, APPLY HYDROGEL COVER WITH FOAM DRESSING Q DAY AND PRN IF SOILING. -PAINT R/L BUTTOCKS WITH BETADINE BID AND LEAVE IT OPEN TO AIR -ELEVATE SCROTAL AREA WITH PILLOW CASE -APPLY HEEL PROTECTORS TO BOTH HEELS AT ALL TIMES -OFFLOAD BILATERAL HEELS BY PLACING PILLOWS UNDER CALVES UNLESS OTHERWISE CONTRAINDICATED -PRESSURE REDISTRIBUTION SURFACE THERAPY -TURN AND REPOSITION Q2H, OFFLOAD SACRALCOCCYX AND BUTTOCKS BY TURNING RIGHT AND LEFT -CONTINUE TO FOLLOW RD RECOMMENDATIONS ALL ABOVE RECOMMENDATIONS DISCUSSED WITH PRIMARY RN. PLEASE CONTACT WOUND CARE NURSE FOR ANY QUESTION AND CHANGE OF WOUND CONDITION.
--- NOTE | 2019-05-16 15:45 | NUR ---
05/16/19 RD INITIAL ASSESSMENT COMPLETED PLEASE REFER TO NUTRITION ASSESSMENT UNDER CARE ACTIVITY FOR ESTIMATED NUTRITIONAL NEEDS. 1. CONTINUE MECHANICAL SOFT DIET TOLERATED 2. RECOMMEND GLUCERNA BID 3. ASSIST PATIENT WHEN EATING 4. RD TO FOLLOW-UP 3-5 DAYS, MODERATE RISK SIS GRANDE, KRISTOFER
[2019-05-16 16:00] VITALS: BP 129/70
[2019-05-16] MEDS ORDERED: SKINTEGRITY HYDROGEL TP PRN (16:10)
[2019-05-16] MEDS ORDERED: GAUZE TP PRN (16:10)
--- NOTE | 2019-05-16 17:05 | NUR ---
PT TOOK OFF HIS GOWN AND TRYING TO REMOVE IV LINE. REORIENTED PT. PUT GOWN BACK, REINFORCED IV CATH WITH TAPE. IV SITE IS ASYMPTOMATIC.
--- NOTE | 2019-05-16 19:30 | NUR ---
ASSUMED CARE OF PATIENT, AWAKE, CONFUSED. NO DISTRESS. STABLE CONDITION. CALL LIGHT WITHIN REACH.
[2019-05-16 20:00] VITALS: BP 105/56
--- NOTE | 2019-05-16 20:00 | NUR ---
REPOSITIONED BY VEGETABLE INSPECTOR. NO COMPLAINS. VITAL SIGNS STABLE. CALL LIGHT WITHIN REACH. CARE BOARD UPDATED.
--- NOTE | 2019-05-16 21:00 | NUR ---
DUE MEDS GIVEN. K-3.4, STANDING ORDER 40MEQ GIVEN. REPOSITIONED AND PERICARE CONVEYOR TECHNICIAN. CALL LIGHT WITHIN REACH.
[2019-05-16] MEDS: DONEPEZIL 10 MG TAB PO SCH (21:04)
[2019-05-17 00:25] VITALS: BP 131/75
[2019-05-17] MEDS: GAUZE TP SCH ×2 (00:35→13:30)
--- NOTE | 2019-05-17 00:35 | NUR ---
REPOSITIONED BY ARTIST AGENT. VITAL SIGNS STABLE. AFEBRILE. CALL LIGHT WITHIN REACH.
[2019-05-17 03:49] VITALS: BP 134/78
--- NOTE | 2019-05-17 03:52 | NUR ---
VITAL SIGNS STABLE NOTED. NO COMPLAINS. CALL LIGHT WITHIN REACH. AWAKE. CONFUSED AND AGITATED.
[2019-05-17] MEDS: NACL 0.45% 1,000 ML IV SCH ×3 (05:32→19:38)
--- NOTE | 2019-05-17 06:23 | NUR ---
PERICARE, COMPLETE BED CHANGE NOTED. CALL LIGHT WITHIN REACH.
[2019-05-17 06:38] LABS: ANION GAP 10.3 (8-16); CARBON DIOXIDE 27.8 mmol/L (21-32); CHLORIDE 111 mmol/L (98-107); CREATININE 1.2 mg/dL (0.7-1.3); GLUCOSE 132 mg/dL (74-106); POTASSIUM 4.1 mmol/L (3.5-5.1); SODIUM SERUM 145 mmol/L (136-145); UREA NITROGEN, BLOOD 26 mg/dL (7-18)
[2019-05-17 06:42] LABS: BASOPHILS % (AUTO) 0.2 % (0.0-2.0); EOSINOPHILS # (AUTO) 0.1 K/uL (0-0.4); EOSINOPHILS % (AUTO) 0.6 % (0.0-4.0); HEMATOCRIT 41.9 % (36-52); HEMOGLOBIN 13.8 g/dL (12.0-18.0); LYMPHOCYTES # (AUTO) 0.7 K/uL (2.0-11.5); LYMPHOCYTES % (AUTO) 6.4 % (20.5-51.1); MEAN CORPUSCULAR HEMOGLOBIN 28 pg (27-31); MEAN CORPUSCULAR HGB CONC 33 g/dL (33-37); MEAN CORPUSCULAR VOLUME 84.7 fL (80-94); MONOCYTES % (AUTO) 9.5 % (1.7-9.3); NEUTROPHILS # (AUTO) 8.7 K/uL (1.8-7.7); NEUTROPHILS % (AUTO) 83.3 % (42.2-75.2); PLATELET COUNT (AUTO) 214 K/uL (140-450); RED BLOOD CELL COUNT(AUTO) 4.94 MIL/uL (4.20-6.10); RED CELL DISTRIBUTION WIDTH 15.4 % (11.6-13.7); WHITE BLOOD COUNT (AUTO) 10.4 K/uL (4.8-10.8)
--- NOTE | 2019-05-17 07:10 | NUR ---
RECEIVED REPORT FROM PROGRAM COORDINATOR EXECUTIVE EDUCATION NURSE. PT ASLEEP IN BED, AROUSABLE TO NAME, DENIES PAIN. PT ON LANG INTERPRETER, IV ON RT FA 20 GA RUNNING IVF PER ORDER. RESPIRATIONS EVEN AND UNLABORED ON RA. ABDOMEN SOFT, LBM 05/17. WILL REVIEW POC WITH PT WHEN AWAKE.
--- NOTE | 2019-05-17 07:21 | NUR ---
ENDORSED CARE AT BEDSIDE WITH MARIAM GUERRERO, PATIENT IN STABLE CONDITION.
[2019-05-17 08:00] VITALS: BP 146/78
[2019-05-17] MEDS: amLODIPine 5 MG TAB PO SCH (09:56)
[2019-05-17] MEDS: COLCHICINE 0.6 MG TAB PO SCH (09:56)
[2019-05-17] MEDS: TAMSULOSIN 0.4 MG CAP PO SCH (09:56)
--- NOTE | 2019-05-17 10:03 | NUR ---
DR. BAIG AT BEDSIDE, GIVEN UPDATE REGARDING PT'S CONDITION. PER PHYSICIAN, ENCOURAGE FLUID INTAKE WHILE AWAKE AND WILL START PROCESS OF FINDING SNF PLACEMENT FOR PT.
--- NOTE | 2019-05-17 11:50 | NUR ---
DISCONTINUED IV TO RT FA, NON-PITTING SWELLING TO RT ARM NOTED. ELEVATED ARM AND APPLIED COLD COMPRESS TO LIMB. PT SHAKES HEAD FROM SIDE TO SIDE WHEN ASKED IF THERE IS PAIN ON RT ARM. WILL CONTINUE TO MONITOR SWELLING.
[2019-05-17 12:00] VITALS: BP 143/72
--- NOTE | 2019-05-17 13:30 | NUR ---
CUSTOM HARVESTER REPORTED THAT PT HAD DIFFICULTY SWALLOWING FOOD DURING FEEDING. WILL REPORT TO DR. BAIG.
[2019-05-17] MEDS: SKINTEGRITY HYDROGEL TP SCH (13:31)
[2019-05-17] MEDS: NON ADHERENT DRESSING TP SCH (13:31)
--- NOTE | 2019-05-17 14:05 | NUR ---
PAGED DR. BAIG, AWAITING CALL BACK.
--- NOTE | 2019-05-17 14:19 | NUR ---
REPORTED PT'S DIFFICULTY TO SWALLOW FOOD DURING MEALS. PER DR. BAIG, CHANGE DIET TO PUREE AND FEED PT WHILE AWAKE AND SITTING UP.
--- NOTE | 2019-05-17 15:34 | NUR ---
LATE ENTRY: CONTACTED [facility] AT [phone], SPOKE TO IKER JOHNSON INFORMED HER OF THE ORDER FOR DC PLANNING FOR SNF PLACEMENT FOR WOUND CARE, IV ANTIBIOTIC AND SKIN CARE. SHE PROVIDED ME OF THE CONTRACTED FACILITIES: [facility] - PHONE: [phone] FAX: [phone] [facility] - PHONE: [phone] FAX: [phone] [facility] - PHONE: [phone] FAX: [phone] [facility] - PHONE: [phone] FAX: [phone] FAXED ALL CLINICALS. PER ROSY OF [facility], NO MALE BEDS AVAILABLE AT THIS TIME. PER JUAN MIGUEL OF [facility], NO MALE BEDS AT THIS TIME. PER DEVYN OF [facility], NO MALE BEDS AT THIS TIME PER BRANDYN OF [facility], WILL REVIEW CLINICALS AND WILL GET BACK TO ME.
[2019-05-17 16:00] VITALS: BP 128/63
--- NOTE | 2019-05-17 16:14 | NUR ---
RECEIVED A CALL FROM MARCO A FROM [facility], NO MALE BEDS AVAILABLE AT THIS TIME.
--- NOTE | 2019-05-17 16:17 | NUR ---
CONTACTED IKER OF [facility], MADE HER AWARE THAT THE FACILITIES SHE PROVIDED EARLIER AR NOT ABLE TO ACCEPT THE PATIENT, THAT THERE ARE NO MALE BEDS AVAILABLE AT THIS TIME.
--- NOTE | 2019-05-17 16:30 | NUR ---
RECEIVED A CALL FROM IKER LEAHY FROM [facility], SHE PROVIDED ME WITH 4 MORE CONTRACTED FACILITIES. [facility] - PHONE [phone] FAX [phone] [facility] - HYBHI-[phone] FAX [phone] [facility] - PHONE - [phone] FAX [phone] [facility] - PHONE [phone] FAX [phone] ALL CLINICALS FAXED. WILL FOLLOW UP.
--- NOTE | 2019-05-17 17:46 | NUR ---
SWELLING TO RT ARM HAS DECREASED. LT AND RT ARM ARE THE SAME SIZE.
--- NOTE | 2019-05-17 19:15 | NUR ---
ENDORSED PT TO LITHOGRAPH PRESS FEEDER NURSE. PT HAS NO SIGNS OF DISTRESS AT THIS TIME.
--- NOTE | 2019-05-17 19:17 | NUR ---
RECEIVED REPORT FROM AM SHIFT NURSE. PT LETHARGIC IN BED, BUT AROUSABLE TO VERBAL AND TACTILE STIMULI, DENIES PAIN. IV ON RT FA 20 GA RUNNING IVF PER ORDER. RESPIRATIONS EVEN AND UNLABORED ON RA. ABDOMEN SOFT, WILL FEED OT SOON AWAKE. WILL MONITOR PT
[2019-05-17 20:00] VITALS: BP 133/73
[2019-05-17] MEDS: DONEPEZIL 10 MG TAB PO SCH (20:27)
--- NOTE | 2019-05-17 22:30 | NUR ---
WASTED D5% 1/2 NS Addendum: 05/18/19 at 0340 by Aleyda Vigil RN WASTED D5% 1/2 NS 1000ML IV BAG
--- NOTE | 2019-05-17 22:40 | NUR ---
RAD HERE TO TAKE XRAY OF BILATERAL FEET
[2019-05-18] VITALS: BP 135/80
--- NOTE | 2019-05-18 | NUR ---
PT STILL SLEEPING WILL CONINUE TO MO=INTOR CHECKED RANDOMLY BS 108
--- NOTE | 2019-05-18 01:00 | NUR ---
PT NOT FED YET HAS NOT AWAKENED
[2019-05-18] MEDS: GAUZE TP SCH ×2 (01:04→15:23)
[2019-05-18 04:00] VITALS: BP 140/80
--- NOTE | 2019-05-18 07:08 | NUR ---
WILL ENDORSE TO NEXT SHIFT, TO FEED PT ONCE AWAKE
--- NOTE | 2019-05-18 07:10 | NUR ---
RECEIVED REPORT FROM SURVEY RESEARCH PROFESSOR NURSE. PT IS SLEEPY. PT IS ON ROOM AIR. IV ON L HAND 22G, 1/2NS INFUSING AT 100ML/HR. PT HAS A KERLIX WRAP ON THE L HAND TO PROTECT THE IV SITE. PT ALSO HAS BILATERAL DRESSINGS ON BOTH FEET. DRY AND INTACT. PLAN FOR TODAY, PT IS TO GO TO SNF FOR WOUND CARE, ABX. WILL CONTINUE TO MONITOR PT.
[2019-05-18 08:00] VITALS: BP 156/78
[2019-05-18] MEDS: NACL 0.45% 1,000 ML IV SCH ×2 (09:40→18:48)
[2019-05-18] MEDS: COLCHICINE 0.6 MG TAB PO SCH (09:41)
[2019-05-18] MEDS: TAMSULOSIN 0.4 MG CAP PO SCH (09:41)
[2019-05-18] MEDS: amLODIPine 5 MG TAB PO SCH (09:41)
--- NOTE | 2019-05-18 09:45 | NUR ---
ADMINISTERED MORNING MEDS. CRUSHED AND PUT IT IN APPLE SAUCE. PT TOLERATED WELL. ATE SOME BREAKFAST. WILL CONTINUE TO MONITOR PT.
[2019-05-18 12:00] VITALS: BP 158/77
--- NOTE | 2019-05-18 12:00 | NUR ---
FED PT LUNCH. ATE. 90% TOLERATED WELL. WILL CONTINUE TO MONITOR PT.
--- NOTE | 2019-05-18 14:00 | NUR ---
LATE ENTRY FOR TODAY: CONTACTED [facility] AT [phone]. PER DAVE (ADMISSIONS) NO AVAILABLE MALE BEDS AT THIS TIME. PER MAGALYS OF [facility] AT [phone], NO MALE BEDS AVAILABLE AT THIS TIME. PER MATIAS OF [facility] AT [phone], THEIR CNO DECLINED CLINICALLY. [facility] AT [phone], LEFT VOICEMAIL X3. AWAITING STILL FOR CALL BACK. PER VIKTOR [facility] AT [phone], STILL NO MALE BEDS PER DEVYN [facility], NO MALE BEDS AVAILABLE AT THIS TIME. PER MARCO A OF [facility] AT [phone], NO BED AVAILABLE AT THIS TIME. CONTACTED [facility] AT [phone], NO ANSWER, LEFT VOICEMAIL. CONTACTED IKER LEAHY [facility] AT [phone], MADE HER AWARE THAT THER ARE NO ACCEPTING FACILITY AT THIS TIME. SHE PROVIDED ME WITH AN AUTHORIZATION FOR FACILITY [id number] AND FOR TRANSPORT MAY USE [id number] IF IN CASE THERE WILL BE ACCEPTING FACILITY TOMORROW. CLINICALS FAXED TO KAREN LUEVANO AT [phone] AND WALLACE ODONNE[facility] AT [phone].
[2019-05-18] MEDS: SKINTEGRITY HYDROGEL TP SCH (15:24)
[2019-05-18] MEDS: NON ADHERENT DRESSING TP SCH (15:24)
[2019-05-18 16:00] VITALS: BP 136/65
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
--- NOTE | 2019-05-18 16:48 | NUR ---
WOUND CARE DONE. PT'S B BUTTOCKS HAS BEEN CLEANED AND DRIED AND HYDROGEL ON WOUND AND MEPILEX ON TOP. IT LOOKS LIKE PT HAD BEEN SITTING ON THE BEDPAN FOR A LONG TIME. WOUND IS SHAPED LIKE CRESCENT MEIER WHERE THE BEDPAN WOULD GO. NOTIFIED CM.
--- NOTE | 2019-05-18 19:23 | NUR ---
ENDORSED PT TO THE PULLER OVER NURSE AT BEDSIDE FOR CONTINUITY OF CARE. PT IS IN STABLE CONDITION.
--- NOTE | 2019-05-18 19:24 | NUR ---
RECEIVED REPORT FROM AM SHIFT. PT AWAKE, ALERT, ORIENTED X 1. W/ CONFUSION, W/ IV ON L HAND 22G, 1/2NS INFUSING AT 100ML/HR. PT ALSO HAS BILATERAL DRESSINGS ON BOTH FEET. DRY AND INTACT. W/ DRESSING ON THE SACROCOCCYX DRY AND INTACT. SCROTAL SWELLING SUPPORTED. PLACED ON LOW BED.CALL LIGHT WITHIN REACH.
[2019-05-18 20:00] VITALS: BP 139/61
[2019-05-18] MEDS: DONEPEZIL 10 MG TAB PO SCH (21:24)
--- NOTE | 2019-05-18 22:30 | NUR ---
PT CLEANED URINE NOTED 1X. TURNED PT TO SIDE.
--- NOTE | 2019-05-18 23:00 | NUR ---
ATTACHED BILATERAL HEELPROTECTORS AND OFF LOAD BILATERAL FEET.
[2019-05-19] VITALS: BP 130/71
--- NOTE | 2019-05-19 01:00 | NUR ---
WOUND CARE DONE ON BILATERAL FEET FOR TUESDAY SCHEDULED (MWF SCHED) ENDORSED BY AM SHIFT FOR CONTINUITY OF CARE. DONE WOUND MANAGEMENT PER WOUND NURSE INSTRUCTIONS
[2019-05-19] MEDS: GAUZE TP SCH ×2 (01:20→13:33)
[2019-05-19 04:00] VITALS: BP 138/75
--- NOTE | 2019-05-19 06:00 | NUR ---
PT ASLEEP, BUT AROUSABLE TO VERBAL AND TACTILE STIMULI , PT IN STABLE CODDITION AT THIS TIME. ENDORSED TO NEXT NURSE. DISCHARGE PLAN FOR ONCE MALE BED AVAILABLE , PT IS TO GO TO SNF FOR WOUND CARE, ABX.
[2019-05-19] MEDS: NACL 0.45% 1,000 ML IV SCH ×2 (06:16→13:30)
--- NOTE | 2019-05-19 07:10 | NUR ---
GOT BEDSIDE REPORT FROM JEWEL STRIPPER NURSE. PATIENT ON TELE MONITOR WITH STANDARD PRECAUTIONS IN PLACE. PATIENT AAOX1, ON ROOM AIR, NO DISTRESS NOTED. PATIENT BEDREST. VENOUS STASIS ON BLE, SACRAL ULCER DRESSING CLEAN DRY AND INTACT. IV ON L H 22G INFUSING 1/2 NS AT 100, IV PATENT AND INTACT. BED IN LOW POSITION, CALL LIGHT WITHIN REACH, SIDE RAILS X2 UP
[2019-05-19 07:24] LABS: BASOPHILS % (AUTO) 0.4 % (0.0-2.0); EOSINOPHILS # (AUTO) 0.2 K/uL (0-0.4); EOSINOPHILS % (AUTO) 1.9 % (0.0-4.0); HEMATOCRIT 37.7 % (36-52); HEMOGLOBIN 12.4 g/dL (12.0-18.0); LYMPHOCYTES # (AUTO) 0.9 K/uL (2.0-11.5); LYMPHOCYTES % (AUTO) 9.3 % (20.5-51.1); MEAN CORPUSCULAR HEMOGLOBIN 28 pg (27-31); MEAN CORPUSCULAR HGB CONC 33 g/dL (33-37); MEAN CORPUSCULAR VOLUME 83.8 fL (80-94); MONOCYTES % (AUTO) 9.6 % (1.7-9.3); NEUTROPHILS # (AUTO) 7.9 K/uL (1.8-7.7); NEUTROPHILS % (AUTO) 78.8 % (42.2-75.2); PLATELET COUNT (AUTO) 200 K/uL (140-450)
[2019-05-19 07:30] LABS: ALBUMIN 1.5 g/dL (3.4-5.0); ANION GAP 9.1 (8-16); ASPARTATE AMINOTRANSFERASE 44 U/L (15-37); CARBON DIOXIDE 26.5 mmol/L (21-32); CHLORIDE 107 mmol/L (98-107); CREATININE 0.9 mg/dL (0.7-1.3); GLUCOSE 123 mg/dL (74-106); POTASSIUM 3.6 mmol/L (3.5-5.1); SODIUM SERUM 139 mmol/L (136-145); TOTAL BILIRUBIN 0.4 mg/dL (0.0-1.0); UREA NITROGEN, BLOOD 17 mg/dL (7-18)
[2019-05-19 08:00] VITALS: BP 145/71
[2019-05-19] MEDS: TAMSULOSIN 0.4 MG CAP PO SCH (09:11)
[2019-05-19] MEDS: amLODIPine 5 MG TAB PO SCH (09:11)
[2019-05-19] MEDS: COLCHICINE 0.6 MG TAB PO SCH (09:11)
--- NOTE | 2019-05-19 09:16 | NUR ---
ADMINISTERED SCHEDULED MEDS. PATIENT TOLERATED WELL
--- NOTE | 2019-05-19 11:10 | NUR ---
PATIENT ATTEMPTING TO GET OUT OF BED, HELPED PATIENT BACK TO BED AND EDUCATED HIM ABOUT THE RISK FOR FALLS
[2019-05-19 12:00] VITALS: BP 148/72
[2019-05-19] MEDS: THERAHONEY WOUND DRESSING TP SCH (13:00)
[2019-05-19] MEDS: ABDOMINAL PAD TP SCH (13:33)
[2019-05-19] MEDS: NON ADHERENT DRESSING TP SCH ×2 (13:33)
[2019-05-19] MEDS: DRY DRESSING TP SCH (13:33)
[2019-05-19] MEDS: NACL 0.9% IRR 250 ML BOTTLE IR SCH (13:33)
[2019-05-19] MEDS: SKINTEGRITY HYDROGEL TP SCH (13:34)
--- NOTE | 2019-05-19 14:50 | NUR ---
PATIENT WATCHING TV, ON ROOM AIR, NO DISTRESS NOTED
[2019-05-19 16:00] VITALS: BP 148/73
--- NOTE | 2019-05-19 16:33 | NUR ---
PATIENT HAD BM, CHANGED SOILED LINENS. PATIENT ON ROOM AIR, NO DISTRESS NOTED
--- NOTE | 2019-05-19 19:30 | NUR ---
RECEIVED FROM AM RN IN BED AWAKE AND ALERT . ABLE TO ANSWER SIMPLE QUESTIONS. UNDERSTANDS AND SPEAKS JAPANESE. FOLLOWS COMMANDS. CARE PLANS FOR THE NIGHT DISCUSSED WITH HIM. RE-ORIENTED TO CALL LIGHT USE. IVF SITE INTACT AND NO INFILTRATION. WITH 1/2 NS INFUSING .TELEMETRY MONITORING.
[2019-05-19] MEDS: DONEPEZIL 10 MG TAB PO SCH (21:08)
[2019-05-19 22:03] VITALS: BP 135/63
--- NOTE | 2019-05-19 22:30 | NUR ---
PT. STILL AWAKE AND WATCHING TV. TALKING TO HIMSELF. ENCOURAGED TO REST AND GO TO SLEEP RT NIGHT TIME. CALL LIGHT WITH IN REACH. DRESSING TO LOWER EXTREMITIES WOUND INTACT AND NO BLEEDING.
--- NOTE | 2019-05-20 00:01 | NUR ---
PT. SLEEPING AT THIS TIME. NO RESTLESSNESS.
[2019-05-20] MEDS: NACL 0.45% 1,000 ML IV SCH ×3 (00:22→19:30)
[2019-05-20 00:43] VITALS: BP 130/74
[2019-05-20] MEDS: GAUZE TP SCH ×2 (01:00→13:00)
[2019-05-20] MEDS: THERAHONEY WOUND DRESSING TP SCH ×2 (01:00→13:00)
--- NOTE | 2019-05-20 02:48 | NUR ---
NEW LINE INSERTED TO RIGHT FOREARM RT OLD IVF SITE TO LEFT FOREARM D/CD BY PT. TIP INTACT. TOLERATED WELL. SLEPT BACK EASILY. HAD BM A LOT . CLEANED UP AND KEPT CLEAN AND DRY.
[2019-05-20 04:08] VITALS: BP 144/72
--- NOTE | 2019-05-20 05:15 | NUR ---
SLEEPING. NO RESTLESSNESS.
--- NOTE | 2019-05-20 06:37 | NUR ---
PT. AWAKE AT THIS TIME RT AM PERSONAL HYGIENE RENDERED. NO COMPLAINTS DONE. ABLE TO VERBALIZE SIMPLE NEEDS.
--- NOTE | 2019-05-20 07:10 | NUR ---
GOT BEDSIDE REPORT FROM PENETRATION TESTER NURSE. PATIENT ON TELE MONITOR WITH STANDARD PRECAUTIONS IN PLACE. PATIENT AAOX1, ON ROOM AIR, NO DISTRESS NOTED. PATIENT BEDREST, INCONTINENT, BLE VENOUS STASIS COVERED WITH KERLIX WRAP AND JACQUELINE WRAP, SACRAL INJURY COVERED WITH FOAM DRESSING, B/L BUTTOCKS INJURY OPEN TO AIR. IV ON R FA 22G INFUSING 0.5 NS AT 100, IV PATENT AND INTACT. FALL RISK PROTOCOL IN PLACE, BED IN LOW POSITION, CALL LIGHT WITHIN REACH, SIDE RAILS X2 UP
[2019-05-20 08:00] VITALS: BP 155/83
[2019-05-20] MEDS: COLCHICINE 0.6 MG TAB PO SCH (09:35)
[2019-05-20] MEDS: TAMSULOSIN 0.4 MG CAP PO SCH (09:35)
[2019-05-20] MEDS: amLODIPine 5 MG TAB PO SCH (09:35)
--- NOTE | 2019-05-20 09:41 | NUR ---
ADMINISTERED SCHEDULED MEDS. PATIENT TOLERATED WELL
[2019-05-20 12:00] VITALS: BP 130/88
--- NOTE | 2019-05-20 12:30 | NUR ---
PATIENT SITTING UP IN BED, EATING LUNCH
[2019-05-20] MEDS: SKINTEGRITY HYDROGEL TP SCH (13:00)
[2019-05-20] MEDS: DRY DRESSING TP SCH (13:00)
[2019-05-20] MEDS: ABDOMINAL PAD TP SCH (13:00)
[2019-05-20] MEDS: NACL 0.9% IRR 250 ML BOTTLE IR SCH (13:00)
[2019-05-20] MEDS: NON ADHERENT DRESSING TP SCH ×2 (13:00)
--- NOTE | 2019-05-20 14:25 | NUR ---
PATIENT WATCHING TV SITTING ON BED COMFORTABLY, ON ROOM AIR, WITH NO DISTRESS
[2019-05-20 16:00] VITALS: BP 133/74
--- NOTE | 2019-05-20 16:51 | NUR ---
PATIENT LAYING COMFORTABLY IN BED, ON ROOM AIR, NO DISTRESS NOTED
--- NOTE | 2019-05-20 19:05 | NUR ---
GAVE BEDSIDE REPORT TO HERBARIUM CURATOR NURSE. PATIENT ENDORSED IN STABLE CONDITION
--- NOTE | 2019-05-20 19:06 | NUR ---
RECEIVED BEDSIDE REPORT FROM DAY SHIFT NURSE. NO S/S SOB ON ROOM AIR. PT AAOX1. PATIENT ON TELE MONITOR WITH STANDARD PRECAUTIONS IN PLACE. PATIENT BEDREST, INCONTINENT, B/L BUTTOCKS INJURY OPEN TO AIR. IV SITE ON RFA 22G INFUSING 1/2 NS @ 100MLS/HR, PATENT, INTACT, AND ASYMPTOMATIC. FALL RISK PROTOCOL IN PLACE, BED IN LOW POSITION, CALL LIGHT WITHIN REACH, SIDE RAILS X2 UP
[2019-05-20 20:00] VITALS: BP 140/77
[2019-05-20] MEDS: DONEPEZIL 10 MG TAB PO SCH (20:17)
--- NOTE | 2019-05-20 20:17 | NUR ---
GIVEN ARICEPT MD ORDERED. PT TOLERATED WELL. WILL CONTINUE TO MONITOR.
--- NOTE | 2019-05-20 22:12 | NUR ---
PT HAD BM. CHANGED PT WITH DAM WORKER, TRACI. PT TOLERATED WELL. BED IN LOW POSITION. CALL LIGHT WITHIN REACH.
--- NOTE | 2019-05-20 22:46 | NUR ---
ACCORDING TO TELE RECRUITING ASSOCIATE, BOBBI, HIGH HEART RATE ALARM AND SEIZURE IN PT. CHECKED PT AND PT AWAKE IN BED AND IN STABLE CONDITION, CHECK VS, WITHIN PT'S BASELINE, INCLUDING HR 88. BREATHING EVEN AND UNLABORED. NO ACUTE DISTRESS NOTED.
[2019-05-21] VITALS: BP 159/76
--- NOTE | 2019-05-21 00:05 | NUR ---
PT SLEEPING IN BED COMFORTABLY. VS CHECKED, WITHIN PT'S BASELINE. RESPIRATORY EVEN AND UNLABORED. BED IN LOW POSITION. WILL CONTINUE TO MONITOR.
[2019-05-21] MEDS: THERAHONEY WOUND DRESSING TP SCH ×2 (01:26→13:00)
[2019-05-21] MEDS: GAUZE TP SCH ×2 (01:26→13:04)
[2019-05-21] MEDS: NACL 0.45% 1,000 ML IV SCH ×2 (01:27→13:05)
--- NOTE | 2019-05-21 02:30 | NUR ---
PT HAD BM AGAIN. CHANGED PT WITH HOSPITALITY HOUSEKEEPER, TRACI. PT TOLERATED WELL.
[2019-05-21 04:00] VITALS: BP 149/72
--- NOTE | 2019-05-21 04:08 | NUR ---
VS CHECKED, WITHIN PT'S BASELINE. BED IN LOW POSITION. CALL LIGHT WITHIN REACH.
--- NOTE | 2019-05-21 06:23 | NUR ---
PT AWAKE, LYING IN BED. BREATHING EVEN AND UNLABORED. NO ACUTE DISTRESS NOTED. BED IN LOW POSITION. CALL LIGHT WITHIN REACH.
[2019-05-21 07:10] LABS: BASOPHILS % (AUTO) 0.4 % (0.0-2.0); EOSINOPHILS # (AUTO) 0.3 K/uL (0-0.4); EOSINOPHILS % (AUTO) 3.2 % (0.0-4.0); HEMATOCRIT 40.8 % (36-52); HEMOGLOBIN 13.5 g/dL (12.0-18.0); LYMPHOCYTES # (AUTO) 0.8 K/uL (2.0-11.5); LYMPHOCYTES % (AUTO) 8.6 % (20.5-51.1); MEAN CORPUSCULAR HEMOGLOBIN 28 pg (27-31); MEAN CORPUSCULAR HGB CONC 33 g/dL (33-37); MEAN CORPUSCULAR VOLUME 83.6 fL (80-94); MONOCYTES # (AUTO) 0.9 K/uL (0.8-1.0); NEUTROPHILS % (AUTO) 77.8 % (42.2-75.2); PLATELET COUNT (AUTO) 217 K/uL (140-450); RED BLOOD CELL COUNT(AUTO) 4.88 MIL/uL (4.20-6.10); RED CELL DISTRIBUTION WIDTH 14.8 % (11.6-13.7); WHITE BLOOD COUNT (AUTO) 9.1 K/uL (4.8-10.8)
--- NOTE | 2019-05-21 07:15 | NUR ---
RECEIVED BEDSIDE REPORT FROM CONSERVATION SCIENCE TEACHER RN JAVIER. PT RESTING IN BED, AAOX1. ABLE TO FOLLOW COMMANDS BUT HX OF DEMENTIA. ON TELE MONITOR. LUNG SOUNDS CLEAR. BOWEL SOUNDS ACTIVE. BLE VENOUS STASIS ULCER DRESSING CLEAN AND INTACT. IV SITE ON RFA 22G INFUSING 1/2 NS @ 100MLS/HR, INFILTRATED. STOPPED INFUSION. WILL TRY TO START NEW IV. FALL RISK PROTOCOL IN PLACE, BED LOCKED IN LOWEST POSITION, CALL LIGHT WITHIN REACH, BOTH SIDE RAILS UP.
[2019-05-21 07:42] LABS: ANION GAP 11.6 (8-16); CARBON DIOXIDE 28.2 mmol/L (21-32); CHLORIDE 103 mmol/L (98-107); CREATININE 0.8 mg/dL (0.7-1.3); GLUCOSE 104 mg/dL (74-106); POTASSIUM 3.8 mmol/L (3.5-5.1); SODIUM SERUM 139 mmol/L (136-145); UREA NITROGEN, BLOOD 13 mg/dL (7-18)
[2019-05-21 08:00] VITALS: BP 138/81
[2019-05-21] MEDS: COLCHICINE 0.6 MG TAB PO SCH (08:19)
[2019-05-21] MEDS: amLODIPine 5 MG TAB PO SCH (08:19)
[2019-05-21] MEDS: TAMSULOSIN 0.4 MG CAP PO SCH (08:19)
--- NOTE | 2019-05-21 10:30 | NUR ---
PT SAT AT THE EDGE OF BED AND STATED WANTING TO GO HOME. REORIENTED PT AND CLEANED PT UP. BED BATH GIVEN BY SUPERINTENDENT TESTS. BED ALARM REARMED.
[2019-05-21 12:00] VITALS: BP 127/61
[2019-05-21] MEDS: DRY DRESSING TP SCH (13:03)
[2019-05-21] MEDS: ABDOMINAL PAD TP SCH (13:03)
[2019-05-21] MEDS: NACL 0.9% IRR 250 ML BOTTLE IR SCH (13:03)
[2019-05-21] MEDS: SKINTEGRITY HYDROGEL TP SCH (13:04)
[2019-05-21] MEDS: NON ADHERENT DRESSING TP SCH ×2 (13:04)
--- NOTE | 2019-05-21 13:15 | NUR ---
BLE DRESSING CHANGED. THERAHONEY SHEET NOT AVAILABLE AT PHARMACY AT THIS TIME. WOUND WAS CLEANSED WITH NS, PATTED DRY. USED XEROFORM DRESSING WITH ABD PAD, KERLIX AND JACQUELINE BANDAGE.
--- NOTE | 2019-05-21 14:06 | NUR ---
PT'S SON DENIZ DHILLON CAME TO VISIT. DENIZ BROUGHT ORIGINAL POWER OF RESEARCH ASSOCIATE POLICY PAPER. COPY MADE AND FILED IN CHART. DENIZ IS AWARE OF PT IS NOT ABLE TO TAKE CARE OF HIMSELF INDEPENDENTLY AND AWAITING FOR SNF PLACEMENT.
--- NOTE | 2019-05-21 14:08 | NUR ---
DC PLANNING Earlier today received call from Dr Fam to try [facility] again today. States discussed hospice w son & does not want hospice @ this time. Called & spoke w Ángel @ [facility], states will check bed availability& return my call. Spoke w pt @ bedside, states to call son Shaggy. Called & spoke w son Shaggy Posada, ph [phone], states pt lives alone in Senior apt & has caregiver. Could not talk on ph @ this time states will call me back, gave son my direct ph#. Addendum: 05/21/19 at 1614 by [place] Phillip Called to f/u ayush Neal @ [facility], no male beds.
--- NOTE | 2019-05-21 15:17 | NUR ---
05/21/19 RD FOLLOW UP COMPLETED PLEASE REFER TO NUTRITION ASSESSMENT UNDER CARE ACTIVITY FOR ESTIMATED NUTRITIONAL NEEDS. 1. CONTINUE PUREE DIET TOLERATED 2. CONTINUE GLUCERNA BID 3. ASSIST PATIENT WHEN EATING 4. RECOMMEND VITAMIN C [address] TO FOLLOW-UP 2-3 DAYS, HIGH RISK SIS GRANDE RD
--- NOTE | 2019-05-21 16:08 | NUR ---
OMA BROCK Received msg from Kaitlin @ [facility] covering for [place], ext [phone], to try [facility] in [place]. Called [facility], fax [phone], & spoke w Liliana larson to fax pt info attn: Anne-Marie or Theresa, faxed pt info requested.
--- NOTE | 2019-05-21 16:30 | NUR ---
2ND BM TODAY, YELLOW SOFT STOOL, LARGE AMOUNT. Addendum: 05/21/19 at 1826 by Victor Hugo Mitchell RN APPLIED NEW OPTIFOAM AND HYDROGEL TO SACRAL AREA. Z GUARD TO SCROTUM AND PERIAREA.
[2019-05-21 16:35] VITALS: BP 142/69
--- NOTE | 2019-05-21 19:10 | NUR ---
RECEIVED PT ON BED, AAOX2, CONFUSED BUT ABLE TO MAKE NEEDS KNOWN, VITAL SIGNS STABLE, DENIES ANY PAIN, IVF INFUSING WELL, DRESSING TO BLE DRY AND INTACT, HEEL PROTECTOR IN PLACE, SAFETY MEASURES IN PLACE, SIDE RAILS UP AND BED ALARM ON, CALL LIGHT WITHIN REACH.
[2019-05-21 20:00] VITALS: BP 116/60
[2019-05-21] MEDS: ASCORBIC ACID 500 MG TAB PO SCH (20:08)
[2019-05-21] MEDS: DONEPEZIL 10 MG TAB PO SCH (20:09)
[2019-05-21] MEDS: Z-GUARD PASTE TP SCH (20:09)
--- NOTE | 2019-05-21 20:15 | NUR ---
DUE MEDS ADMINISTERED, TOLERATED ALL, ALL NEEDS ATTENDED.
--- NOTE | 2019-05-21 21:30 | NUR ---
ROUNDS MADE, SEEN PT SLEEPING, NO SIGNS OF DISTRESS, MONITORED CLOSELY.
--- NOTE | 2019-05-21 22:40 | NUR ---
PT HAD LARGE BROWNISH LOOSE/MUCOID BM, PT CLEANED AND BED LINEN CHANGED, REPOSITIONED AND OFFLOAD PRESSURE AREAS, MONITORED CLOSELY.
[2019-05-22] VITALS: BP 139/73
--- NOTE | 2019-05-22 | NUR ---
PT SLEEPING, OPEN EYES TO TOUCH, VITAL SIGNS STABLE, DENIES PAIN, NO SOB NOTED, IVF INFUSING WELL, CONTINUE TO MONITOR CLOSELY.
[2019-05-22] MEDS: NACL 0.45% 1,000 ML IV SCH ×3 (00:41→22:03)
[2019-05-22] MEDS: GAUZE TP SCH ×3 (01:21→22:23)
[2019-05-22] MEDS: THERAHONEY WOUND DRESSING TP SCH ×3 (01:21→22:23)
[2019-05-22 04:00] VITALS: BP 148/86
--- NOTE | 2019-05-22 05:00 | NUR ---
PT SLEEPING, BM WITH LOOSE STOOL, CLEANED AND REPOSITIONED, PT WENT BACK TO SLEEP, MONITORED CLOSELY.
--- NOTE | 2019-05-22 07:10 | NUR ---
RECEIVED REPORT FROM GROCERY SUPERVISOR NURSE. PATIENT IS ASLEEP IN BED, EASILY AROUSABLE. NO S/S RESP DISTRESS, PATIENT IS ON ROOM AIR. A&O X1, FOLLOWS COMMANDS. WILL CONTINUE TO MONITOR.
--- NOTE | 2019-05-22 07:10 | NUR ---
PT SLEEPING, EASILY AROUSABLE, NO SIGNS OF DISTRESS, BEDSIDE REPORT GIVEN TO RN MURPHY FOR CONTINUITY OF CARE.
[2019-05-22 08:00] VITALS: BP 146/65
[2019-05-22] MEDS: Z-GUARD PASTE TP SCH ×2 (09:00→20:06)
--- NOTE | 2019-05-22 09:45 | NUR ---
SPOKE TO DR MURRY ABOUT PATIENT NOT TOLERATING BREAKFAST WELL. ORDERS RECEIVED FOR A SWALLOW EVALUATION. WITHHELD MEDICATION FOR THE TIME BEING.
--- NOTE | 2019-05-22 10:27 | NUR ---
DISCHARGE PLANNING Follow-up call made to the following SNFs for placement: [facility] - no male beds available and no discharges planned for the next two days [facility] - no male beds available [facility] - admissions currently reviewing this referral Sw will continue following up as needed. SHARAN DonisW
--- NOTE | 2019-05-22 10:30 | NUR ---
ASSISTED HOME HEALTH AIDE CAREGIVER WITH CHANGING PATIENTS SHEETS AND CHUX. PATIENT HAD SMALL BM, SOFT CONSISTENCY. APPLIED NORMAL SALINE, APPLIED HYDROGUARD AND CHANGED OPTIFOAM DRESSING ON COCCYX AREA. APPLIED HYDROGUARD TO OTHER OPEN SORES ON THE BOTTOM AREA.
[2019-05-22] MEDS: amLODIPine 5 MG TAB PO SCH (10:48)
[2019-05-22] MEDS: ASCORBIC ACID 500 MG TAB PO SCH ×2 (10:48→20:02)
[2019-05-22] MEDS: COLCHICINE 0.6 MG TAB PO SCH (10:48)
[2019-05-22] MEDS: TAMSULOSIN 0.4 MG CAP PO SCH (10:48)
--- NOTE | 2019-05-22 10:48 | NUR ---
ADMINISTERED MEDICATION LATE D/T PENDING SWALLOW EVALUATION. CRUSHED MEDICATION AND ADMINISTERED WITH APPLE SAUCE. PATIENT TOLERATED WELL. NO RESP DISTRESS
[2019-05-22 12:00] VITALS: BP 139/71
[2019-05-22] MEDS: DRY DRESSING TP SCH (13:00)
[2019-05-22] MEDS: NACL 0.9% IRR 250 ML BOTTLE IR SCH (13:00)
[2019-05-22] MEDS: ABDOMINAL PAD TP SCH (13:00)
[2019-05-22] MEDS: SKINTEGRITY HYDROGEL TP SCH (13:00)
--- NOTE | 2019-05-22 13:43 | NUR ---
PER SEDRICK OF [facility] AT [phone], THEY ARE ABLE TO ACCEPT PATIENT, BUT WILL REQUIRE A LOW AIR LOSS MATTRESS. SHE SAID PATIENT CAN GO TO ROOM 328 BED 2, ACCEPTING PHYSICIAN IS DR. BAUER. NUMBER TO CALL FOR REPORT [phone] AND ASK TO BE CONNECTED TO STATION 3. PRIMARY RN MADE AWARE. CONTACTED JUSTINO ARMOND FROM [facility] AT [phone] EXT [phone], SHE CONFIRMED THAT SHE RECEIVED THE ORDER FAXED FOR LOW AIR LOSS MATTRESS AT [phone]. WILL LET ME KNOW OF THE ETA ONCE CONFIRMED BY URIEL.
[2019-05-22] MEDS: NON ADHERENT DRESSING TP SCH ×2 (13:54)
--- NOTE | 2019-05-22 14:10 | NUR ---
*S.T. Bedside swallow eval completed* See report. Pt presents w/ moderate pharyngeal stage dysphagia c/b delayed initiation of pharyngeal swallow. Pt also grimaced in pain w/ swallows intermittently, stating that the pain "comes and goes." No overt s/s aspiration observed for textures given. Recommend: 1) Continue pureed diet, thin liquids okay w/ straws. 2) 1:1 feeder due to general weakness 3) P.O. meds as tolerated; preferably crushed and mixed w/ puree. Pt appears to be functioning at baseline level. No further tx indicated at this time. DC to [facility]. Endorsed to [facility]. Time 4959-2022
--- NOTE | 2019-05-22 15:00 | NUR ---
PATIENT IS SLEEPING. NO SIGNS OF DISTRESS
--- NOTE | 2019-05-22 15:55 | NUR ---
CONTACTED JUSTNIO OF [facility] AT [phone] EXT [phone] REGARDING LOW AIR LOSS MATTRESS, SHE STATED THAT SHE WILL FOLLOW UP WITH URIEL. PROVIDED HER WITH MY CONTACT INFO.
[2019-05-22 16:00] VITALS: BP 119/65
--- NOTE | 2019-05-22 16:15 | NUR ---
CONTACTED JUSTINO OF [facility] TO FOLLOW UP LOW AIR LOSS MATTRESS. SHE STATED THAT SHE PLACED THE ORDER URGENT TO URIEL, NO RESPONSE FROM URIEL YET. SHE PROVIDED ME OF URIEL'S CONTACT INFO [phone] AND AUTH #[id number]. CONTACTED URIEL AT THE GIVEN NUMBER, ABLE TO SPEAK TO LEXIE. SHE STATED THAT THE ORDER IS IN THE PROCESS. I PROVIDED HER OF THE UNIT'S PHONE NUMBER TO CONTACT FOR ETA. CONTACTED JUSTINO [facility] AND MADE HER AWARE. SHE SAID WE CAN STILL USE THE SAME AUTH NUMBER FOR SNF [id number] AND FOR TRANSPORT [facility] AUTH #[id number]. PRIMARY RN MADE AWARE.
--- NOTE | 2019-05-22 19:05 | NUR ---
ENDORSED PATIENT TO DICE TABLE PERSON NURSE ELIZA
--- NOTE | 2019-05-22 19:10 | NUR ---
RECEIVED PT SLEEPING, EASILY AROUSABLE TO TOUCH, AAOX2, VITAL SIGNS STABLE, DENIES ANY PAIN, IVF INFUSING WELL, DRESSING TO BLE DRY AND INTACT, FOR DISCHARGE TONIGHT TO [facility] PENDING DELIVERY OF LOW AIR LOSS MATTRESS AT THE FACILITY, SAFETY MEASURES IN PLACE, CALL LIGHT WITHIN REACH.
--- NOTE | 2019-05-22 19:32 | NUR ---
RECEIVED PATIENT ON ROOM AIR, PULSE OX SAT 99%. NO SOB NOTED AT THIS TIME. PRN HHN NOT INDICATED. NO RESPIRATORY DISTRESS NOTED. WILL CONTINUE TO MONITOR.
[2019-05-22] MEDS ORDERED: ROC2I IV (19:39)
[2019-05-22 20:00] VITALS: BP 115/52
[2019-05-22] MEDS: DONEPEZIL 10 MG TAB PO SCH (20:02)
--- NOTE | 2019-05-22 20:05 | NUR ---
DUE MEDS TAKEN, TOLERATED WELL, PT ATE DINNER 100%, ALL NEEDS ATTENDED.
--- NOTE | 2019-05-22 20:53 | NUR ---
SHA NICOLE CALLED [facility] AT #[phone] TO CONFIRM IF THEY RECEIVED THE LOW AIR LOSS MATTRESS, SPOKE TO HESHAM GUERRERO AND STATED THEY HAVEN'T RECEIVED IT YET.
--- NOTE | 2019-05-22 21:07 | NUR ---
SHA RIVERA CALLED HESHAM BACK TO TELL HIM TO CALL US BACK IF THEY RECEIVED THE MATTRESS SO WE CAN DISCHARGE THE PT.
--- NOTE | 2019-05-22 23:44 | NUR ---
SHA NICLOE CALLED [facility] AND TALKED TO HESHAM GUERRERO, LOW AIR LOSS MATTRESS HASN'T ARRIVED YET, REMINDED HIM TO CALL US BACK WHEN IT ARRIVED, APPLICATIONS SALES REPRESENTATIVE LINDA AND FILIPE CLARK IS AWARE.
[2019-05-23] VITALS: BP 153/71
--- NOTE | 2019-05-23 01:58 | NUR ---
PT SLEEPING, NO DISTRESS NOTED, REPORT GIVEN TO CESAR OWUSU FOR CONTINUITY OF CARE.
--- NOTE | 2019-05-23 01:59 | NUR ---
RECEIVED REPORT FROM ELIZA GUERRERO. PT IN STABLE CONDITION.
--- NOTE | 2019-05-23 02:56 | NUR ---
PT SLEEPING NO SIGNS OF DISTRESS. NO PAIN REPORTED. EVEN UNLABORED BREATHS. WILL CONTINUE TO MONITOR.
[2019-05-23 04:00] VITALS: BP 143/68
--- NOTE | 2019-05-23 04:59 | NUR ---
PT SLEEPING. NO SIGNS OF RESP DISTRESS. NO PAIN NOTED. ABLE TO MAKE NEEDS KNOWN. BED IN LOWEST POSITION. CALL LIGHT WITHIN REACH. WILL CONTINUE TO MONITOR.
--- NOTE | 2019-05-23 06:16 | NUR ---
WILL ENDORSE PT TO DAYSHIFT RN. PT IN STABLE CONDITION. NO SIGNS OF DISTRESS. ABLE TO MAKE NEEDS KNOWN. BED IN LOWEST POSITION. CALL LIGHT WITHIN REACH.
--- NOTE | 2019-05-23 07:00 | NUR ---
RECEIVED REPORT FROM GAME ENGINEER NURSE. PATIENT IS SLEEPING IN BED. NO SIGNS OF RESP DISTRESS. A&O X1- FOLLOWS COMMANDS. PENDING TRANSFER TO [facility]. WILL CONTINUE TO MONITOR
[2019-05-23] MEDS: NACL 0.45% 1,000 ML IV SCH (07:30)
[2019-05-23 08:00] VITALS: BP 149/63
--- NOTE | 2019-05-23 08:36 | NUR ---
CONTACTED [facility] AT [phone], SPOKE WITH ROSY (DESK NURSE). SHE STATED THAT THE BED HAS NOT BEEN DELIVERED YET. CALLED [facility] AT [phone], ABLE TO SPEAK TO MARTINA. SHE STATED THAT THEY TRIED TO DELIVER THE MATTRESS TO THE PATIENT'S ADDRESS. I TOLD HER THAT I SPECIFICALLY TOLD LEXIE YESTERDAY THAT IT WILL BE DELIVERED TO [facility] AT [address], [place] [id number]. SHE ALSO STATED THAT SHE WILL PLACE THE ORDER URGENT AND TO CALL HER BACK IN 30 MINS TO AN HOUR TO CONFIRM ETA. JUSTINO OF [facility] MADE AWARE.
--- NOTE | 2019-05-23 08:50 | NUR ---
ADMINISTERED MORNING MEDICATION VIA CRUSHING AND MIXING WITH APPLESAUCE. PATIENT TOLERATED WELL, NO RESP DISTRESS
[2019-05-23] MEDS: TAMSULOSIN 0.4 MG CAP PO SCH (08:51)
[2019-05-23] MEDS: COLCHICINE 0.6 MG TAB PO SCH (08:51)
[2019-05-23] MEDS: ASCORBIC ACID 500 MG TAB PO SCH (08:51)
[2019-05-23] MEDS: amLODIPine 5 MG TAB PO SCH (08:51)
[2019-05-23] MEDS: Z-GUARD PASTE TP SCH (09:39)
--- NOTE | 2019-05-23 11:06 | NUR ---
CONTACTED [facility], SPOKE TO VANDA. HE STATED THAT THE MATTRESS HAD BEEN DELIVERED TO [facility] AROUND 1015. CONTACTED [facility], SPOKE TO SEDRICK AND CONFIRMED THE DELIVERY, REQUESTED THAT IF WE CAN TRANSPORT THE PATIENT AROUND 1400. PRIMARY RN AND CHARGE NURSE MADE AWARE. CONTACTED [facility] AT [phone], SPOKE TO ALLAN. PROVIDED HIM WITH TRANSPORT AUTH #[id number]. PER ALLAN ASSISTED LIVING HOUSEKEEPER WILL BE BETWEEN 2-3PM. PRIMARY RN AND CHARGE NURSE MADE AWARE. SEDRICK RECRUITMENT AND OUTREACH ASSISTANT AT [facility] MADE AWARE WELL. PATIENT'S SON DENIZ DHILLON, CONTACTED AT [phone]. MADE HIM AWARE OF PATIENT BEING TRANSFERRED TODAY TO [facility]. PROVIDED HIM OF [facility]'S PHONE NUMBER.
--- NOTE | 2019-05-23 11:22 | NUR ---
SPOKE TO KAL FROM [facility] AND GAVE REPORT ON PATIENT. APPROXIMATED HOGSHEAD INSPECTOR TIME IS 2PM. WILL PRINT OUT DISCHARGE PAPERWORK FOR PATIENT AND FACILITY, AND WILL CONTACT FAMILY MEMBER
--- NOTE | 2019-05-23 11:22 | NUR ---
LEFT MESSAGE TO JUSTINO LEAHY AT [facility], REGARDING DISCHARGE.
[2019-05-23 12:00] VITALS: BP 137/69
--- NOTE | 2019-05-23 12:25 | NUR ---
SPOKE TO SON DENIZ AND INFORMED HIM OF THE TRANSFER AND TIME.
[2019-05-23] MEDS: ABDOMINAL PAD TP SCH (13:00)
[2019-05-23] MEDS: SKINTEGRITY HYDROGEL TP SCH (13:00)
[2019-05-23] MEDS: NACL 0.9% IRR 250 ML BOTTLE IR SCH (13:00)
[2019-05-23] MEDS: THERAHONEY WOUND DRESSING TP SCH (13:00)
[2019-05-23] MEDS: GAUZE TP SCH (13:00)
[2019-05-23] MEDS: DRY DRESSING TP SCH (13:00)
[2019-05-23] MEDS: NON ADHERENT DRESSING TP SCH ×2 (13:00)
--- NOTE | 2019-05-23 13:30 | NUR ---
PATIENT WAS PICKED UP FOR TRANSPORT TO [facility]. PAPERWORK WAS GIVEN TO TRANSPORTERS ALONG WITH PERSONAL BELONGINGS. IV WAS KEPT IN PLACE FOR IV ABX AT REHAB. PATIENT WAS TAKEN OFF TELE MONITOR.
== END 2019-05-23 13:35 | DRG 682 ==
LOC: MED 12:38 → MTU 16:02 → MMU 05-16 00:19
PROVIDERS: ADMIT Internal Medicine Pulmonary Disease; ATTEND Internal Medicine Pulmonary Disease
DX: N17.9 Acute kidney failure, unspecified (principal); E43 Unspecified severe protein-calorie malnutrition; M62.82 Rhabdomyolysis; N39.0 Urinary tract infection, site not specified; E87.0 Hyperosmolality and hypernatremia; N45.3 Epididymo-orchitis; E86.0 Dehydration; F03.90 Unspecified dementia, unspecified severity, without behavioral disturbance, psychotic disturbance, mood disturbance, and anxiety; I10 Essential (primary) hypertension; E11.9 Type 2 diabetes mellitus without complications; S09.90XA Unspecified injury of head, initial encounter; W01.0XXA Fall on same level from slipping, tripping and stumbling without subsequent striking against object, initial encounter; S16.1XXA Strain of muscle, fascia and tendon at neck level, initial encounter; N43.3 Hydrocele, unspecified; L85.3 Xerosis cutis; S91.002A Unspecified open wound, left ankle, initial encounter; M62.50 Muscle wasting and atrophy, not elsewhere classified, unspecified site; Z95.0 Presence of cardiac pacemaker; Y93.89 Activity, other specified; Y92.89 Other specified places as the place of occurrence of the external cause; Y99.8 Other external cause status; Z68.21 Body mass index [BMI] 21.0-21.9, adult
CPT/HCPCS: 36415; 36600; 70450; 71045; 72125; 73590; 73620; 76870; 80048; 80053; 81001; 82550; 82553; 82803; 82948; 83605; 83880; 84484; 85025; 85610; 85730; 87040; 87081; 87086; 92610; 93005; 94640; 96361; 96365; 99285; A6248; C1758; J0696; J2060; J7030; J7060; J7613; J7644; Q0092